=== PATIENT | female | born 1945 | race Caucasian/White ===

== ENCOUNTER 2018-01-26 16:38 | Observation (INO) ==
--- NOTE | 2018-01-26 17:23 | Emergency Department Note ---
Disposition Clinical Impression: Tachypnea, Elevated brain natriuretic peptide (BNP) level Dyspnea Qualifiers: Dyspnea type: dyspnea on exertion Qualified Code(s): R06.09 - Other forms of dyspnea Disposition: Admitted As Inpatient Condition: Fair Referrals: Gabe Montano Jr, MD [Primary Care Provider] - Forms: ED Satisfaction Letter Time of Disposition: 20:46 General Adult HPI - General Chief complaint: ED Shortness of Breath/Dyspnea Stated complaint: CHANDLER Time Seen by Provider: 01/26/18 16:48 Source: patient Mode of arrival: private vehicle Limitations: no limitations Nursing Notes Reviewed: Yes Vital Signs Reviewed: Yes - History of Present Illness HPI Narrative: Patient is a 72-year-old female with past medical history including congestive heart failure, hypertension, history of atrial fibrillation, presents with a chief complaint of difficulty breathing for four days. States 4 days ago she started feeling short of breath that has been progressively worsening the past 4 days. She states the shortness of breath worsens with exertion. She is now becoming short of breath when she gets up to go to the bathroom or walk upstairs. He does not have any oxygen at home. She complains of some intermittent nonradiating sharp right-sided chest pain. She also complains of cough and states "I feel like I am coughing up bubbles." She denies any fevers , nausea, abdominal pain, diaphoresis. She is presenting to the ED today for worsening of her symptoms. Pain Scale: 4 - Related Data Home Medications Medication Instructions Recorded Confirmed Aspirin 81 mg PO QPM 12/31/14 09/16/16 Furosemide [Lasix] 80 mg PO BID 12/31/14 09/16/16 Insulin Glargine,Hum.rec.anlog 40 unit SQ BID 12/31/14 09/16/16 [Lantus Solostar] Simvastatin [Zocor] 40 mg PO QPM 12/31/14 09/16/16 Amitriptyline [Elavil] 25 mg PO HS 01/26/18 01/26/18 Metoprolol Succinate 200 mg PO DAILY 01/26/18 01/26/18 OxyCODONE/APAP 5/325 [Percocet 1 - 2 tab PO Q6HR PRN 01/26/18 01/26/18 5/325 MG] Quinapril HCl [Accupril] 10 mg PO DAILY 01/26/18 01/26/18 Rivaroxaban [Xarelto] 15 mg PO DAILY 01/26/18 01/26/18 Simvastatin [Zocor] 40 mg PO HS 01/26/18 01/26/18 Allergies Allergy/AdvReac Type Severity Reaction Status Date / Time bacitracin Allergy Rash Verified 01/10/17 13:17 [From Neosporin ([id number])] Neomycin Allergy Rash Verified 01/10/17 13:17 [From Neosporin ([id number])] polymyxin B Allergy Rash Verified 01/10/17 13:17 [From Neosporin ([id number])] All systems ED: reviewed and negative except as stated. Review of Systems: As Per HPI Constitutional: Denies: fever, chills Eyes: Denies: vision change ENT ED: Denies: throat pain, congestion Cardiovascular: Reports: chest pain, dyspnea on exertion. Denies: palpitations Respiratory: Reports: cough. Denies: wheezes, hemoptysis Gastrointestinal: Denies: abdominal pain, nausea, diarrhea Genitourinary: Denies: dysuria, frequency Musculoskeletal: Denies: back pain Integumentary: Denies: rash Neurological: Denies: headache, weakness Hematological/Lymphatic: Denies: easy bruising Past Medical History - Past Medical History Attestation: Yes The following information was validated with the patient. 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 No conversational dyspnea. No crackles or wheezes). Absent: accessory muscle use - Cardiovascular Cardiovascular exam: Present: regular rate, normal rhythm, other (minimal pitting edema on right lower extremity. Left lower extremity is significantly more swollen than the right, about 2+ pitting edema. Bilateral radial pulses equal.). Absent: JVD - Abdominal Exam Abdominal exam: Present: soft, Non-Tender. Absent: distention - Neurological Exam Neurological exam: Present: alert, oriented X3 - Psychiatric Psychiatric exam: Present: normal affect, normal mood - Skin Skin exam: Present: warm, dry, intact. Absent: diaphoresis Course Vital Signs Temperature 97.6 F 01/26/18 16:43 Pulse Rate 83 01/26/18 16:43 Respiratory Rate 24 01/26/18 16:43 Blood Pressure 169/96 01/26/18 16:43 O2 Sat by Pulse Oximetry 98 01/26/18 16:43 Temperature 97.6 F 01/26/18 16:52 Pulse Rate 72 01/26/18 20:05 Respiratory Rate 20 01/26/18 20:05 Blood Pressure 109/83 01/26/18 20:05 O2 Sat by Pulse Oximetry 100 01/26/18 20:05 Oxygen Delivery Oxygen Delivery Room Air Procedures - Bursa Procedures Amount of anesthesia used (mL): 2 Fluid Obtained (mls): 1 Medical Decision Making - MDM Narrative Medical decision making narrative: Patient states the shortness of breath is improved with oxygen. She is on 2L O2 per NC at this time. She has no chest pain. Will get CXR, EKG, CBC, BMP, troponin, and BNP. Patient also has significant left lower extremity edema, more than the right. She denies immobilization, history of cancer, history of hormone use, history of blood clots. Will check venous doppler of left lower extremity to rule out DVT. Ordered CT angio of chest to rule out PE, but GFR came back to be 35. Will hold off on this for now and await ultrasound results and PT/INR as she takes warfarin. 15:55 Troponin is <0.03. No evidence of acute ischemia on EKG. 18:25 BNP is elevated at 397. She has had higher BNP is in the past in the 400s and 600s. Patient does take Lasix 80mg PO BID. Chest x-ray with cardiomegaly but no consolidation or acute cardiopulmonary process. 19:40 Patient has a superficial saphenous vein blood clot. No deep vein thrombosis is noted. Patient is already anticoagulated. Upon reevaluation, the patient's denies shortness of breath. She is on 2 L of oxygen. The patient is appropriately anticoagulated with warfarin and INR of 3.0, but there is still concern for a pulmonary embolism versus cardiac cause to her shortness of breath. Recommend VQ scan to further evaluate for pulmonary embolism in the inpatient setting. Hospitalist was consulted at 20:00 to be admitted for exertional dyspnea that is responsive to oxygen. She also has elevated BNP, possible fluid overload. 20:35 Hospitalist accepts admission. Patient is still requiring oxygen. She states she feels more short of breath when the oxygen is taken off. She tachypneic at times as well. Oxygen was placed back on the patient. - Medical Records Medical records reviewed: Yes I reviewed the patient's medical records. - Lab Data Lab results reviewed: Yes I reviewed the patient's lab results. Result diagrams: 01/26/18 17:17 01/26/18 17:17 Lab Results 01/26/18 01/26/18 01/26/18 Range/Units 17:17 17:17 17:17 WBC 8.4 (4.3-11.1) K/mcL RBC 3.65 L (3.82-4.97) M/mcL Hgb 10.0 L (11.5-15.4) g/dL Hct 32.7 L (35.3-44.9) % MCV 89.6 (83.0-100.0) fL MCH 27.4 L (28.0-33.3) pg MCHC 30.6 L (31.6-35.5) g/dL RDW 14.6 H (11.5-14.5) % Plt Count 115 L (140-400) K/mcL MPV 12.0 (9.4-12.4) fL Immature Gran % 0.9 (0-4) % Seg Neutrophils % 69.1 % Lymphocytes % 20.0 % Monocytes % 8.1 % Eosinophils % 1.5 % Basophils % 0.4 % Neutrophils # 5.8 (1.6-8.9) K/mcL Lymphocytes # 1.7 (0.6-4.6) K/mcL Monocytes # 0.7 (0.0-1.3) K/mcL Eosinophils # 0.1 (0.0-0.6) K/mcL Basophils # 0.0 (0.0-0.2) K/mcL PT (9.4-12.1) Seconds INR Sodium 139 (136-145) mEq/L Potassium 4.2 (3.5-5.1) mEq/L Chloride 102 (98-107) mEq/L Carbon Dioxide 27 (23-29) mEq/L BUN 40 H (8-23) mg/dL Creatinine 1.47 H (0.60-1.20) mg/dL Est GFR ( Amer) 42 L (> 60) Est GFR (Non-Af Amer) 35 L (> 60) BUN/Creatinine Ratio 27 H (6-26) Glucose 159 H (70-105) mg/dL Calculated Osmolality 301 H (280-300) Calcium 8.2 L (8.6-10.3) mg/dL Troponin I < 0.03 (< 0.04) ng/mL B-Natriuretic Peptide 397 H (Less than 100) pg/mL 01/26/18 Range/Units 17:17 WBC (4.3-11.1) K/mcL RBC (3.82-4.97) M/mcL Hgb (11.5-15.4) g/dL Hct (35.3-44.9) % MCV (83.0-100.0) fL MCH (28.0-33.3) pg MCHC (31.6-35.5) g/dL RDW (11.5-14.5) % Plt Count (140-400) K/mcL MPV (9.4-12.4) fL Immature Gran % (0-4) % Seg Neutrophils % % Lymphocytes % % Monocytes % % Eosinophils % % Basophils % % Neutrophils # (1.6-8.9) K/mcL Lymphocytes # (0.6-4.6) K/mcL Monocytes # (0.0-1.3) K/mcL Eosinophils # (0.0-0.6) K/mcL Basophils # (0.0-0.2) K/mcL PT 33.4 H (9.4-12.1) Seconds INR 3.0 Sodium (136-145) mEq/L Potassium (3.5-5.1) mEq/L Chloride (98-107) mEq/L Carbon Dioxide (23-29) mEq/L BUN (8-23) mg/dL Creatinine (0.60-1.20) mg/dL Est GFR ( Amer) (> 60) Est GFR (Non-Af Amer) (> 60) BUN/Creatinine Ratio (6-26) Glucose (70-105) mg/dL Calculated Osmolality (280-300) Calcium (8.6-10.3) mg/dL Troponin I (< 0.04) ng/mL B-Natriuretic Peptide (Less than 100) pg/mL - Radiology Data Radiology results reviewed: Yes I reviewed the patient's radiology results. Chest X-Ray 01/26/18 17:02 IMPRESSION: Cardiomegaly, otherwise, stable chest D/ / Omero Hawkins MD / Omero Hawkins MD Interpreting Provider: Omero Hawkins MD - EKG Data EKG #1 EKG attestation: Yes I reviewed and interpreted this EKG. EKG results narrative: EKG on 01/26/2018 at 1706 shows atrial fibrillation with heart rate 81. QT interval 394. QTC 446. No ST elevation or depression is noted. Attestation Statement - Attestation Attestation: I, You He DO, examined this patient [id number] and my medical decision-making was reviewed with Dr. Narda Logan , Resident Physician. I agree with the documented findings, disposition and treatment plan as described except to the extent set forth below. Please see my progress notes for details.
[2018-01-26 17:27] LABS: Hematocrit 32.7 % (35.3-44.9); Mean Corpuscular HGB Conc 30.6 g/dL (31.6-35.5); Mean Corpuscular Hemoglobin 27.4 pg (28.0-33.3); Mean Corpuscular Volume 89.6 fL (83.0-100.0); Platelet Count 115 K/mcL (140-400); Red Blood Count 3.65 M/mcL (3.82-4.97); Red Cell Distribution Width 14.6 % (11.5-14.5); Segmented Neutrophils % 69.1 %
[2018-01-26 17:28] LABS: Basophils % 0.4 %; Eosinophils # 0.1 K/mcL (0.0-0.6); Eosinophils % 1.5 %; Immature Granulocytes % 0.9 % (0-4); Lymphocytes # 1.7 K/mcL (0.6-4.6); Monocytes # 0.7 K/mcL (0.0-1.3); Monocytes % 8.1 %; Neutrophils # 5.8 K/mcL (1.6-8.9)
[2018-01-26] MEDS ORDERED: Isovue-370 500 ML INFUS..BTL IV ONE (17:48)
[2018-01-26 17:49] LABS: Troponin I < 0.03 ng/mL (< 0.04)
[2018-01-26 17:50] LABS: BUN/Creatinine Ratio 27 (6-26); Blood Urea Nitrogen 40 mg/dL (8-23); Calcium 8.2 mg/dL (8.6-10.3); Carbon Dioxide 27 mEq/L (23-29); Chloride 102 mEq/L (98-107); Glucose 159 mg/dL (70-105); Osmolality,Calculated 301 (280-300); Potassium 4.2 mEq/L (3.5-5.1); Sodium 139 mEq/L (136-145); eGFR For Non-African Americans 35 (> 60)
[2018-01-26 18:17] LABS: Prothrombin Time 33.4 Seconds (9.4-12.1)
--- NOTE | 2018-01-26 19:21 | Emergency Department Note ---
Disposition Clinical Impression: Dyspnea, Tachypnea, Elevated brain natriuretic peptide (BNP) level Disposition: Admitted As Inpatient Condition: Fair Referrals: Gabe Montano Jr, MD [Primary Care Provider] - Forms: ED Satisfaction Letter Time of Disposition: 20:39 General Adult HPI - General Chief complaint: ED Shortness of Breath/Dyspnea Stated complaint: CHANDLER Time Seen by Provider: 01/26/18 16:48 Source: patient Mode of arrival: private vehicle Limitations: no limitations - History of Present Illness Pain Scale: 4 - Related Data Home Medications Medication Instructions Recorded Confirmed Amitriptyline [Elavil] 25 mg PO QPM 12/31/14 09/16/16 Aspirin 81 mg PO QPM 12/31/14 09/16/16 Estrogens, Conjugated [Premarin] 0.625 mg PO QAM 12/31/14 09/16/16 Furosemide [Lasix] 80 mg PO BID 12/31/14 09/16/16 Insulin Glargine,Hum.rec.anlog 40 unit SQ BID 12/31/14 09/16/16 [Lantus Solostar] Quinapril HCl 10 mg PO QAM 12/31/14 09/16/16 Rivaroxaban [Xarelto] 15 mg PO QPM 12/31/14 09/16/16 Simvastatin [Zocor] 40 mg PO QPM 12/31/14 09/16/16 Ferrous Sulfate 325 mg PO QAM 04/22/15 09/16/16 Metoprolol Succinate [Toprol Xl] 200 mg PO QAM 04/22/15 09/16/16 Previous Rx's Medication Instructions Recorded Oxycodone HCl/Acetaminophen 1 - 2 each PO Q6HR #20 tablet 10/07/15 [Percocet 5-325 mg Tablet] Cyclobenzaprine [Flexeril] 10 mg PO BID #10 tablet 01/10/17 Allergies Allergy/AdvReac Type Severity Reaction Status Date / Time bacitracin Allergy Rash Verified 01/10/17 13:17 [From Neosporin ([id number])] Neomycin Allergy Rash Verified 01/10/17 13:17 [From Neosporin ([id number])] polymyxin B Allergy Rash Verified 01/10/17 13:17 [From Neosporin ([id number])] Constitutional: Denies: fever, chills Eyes: Denies: vision change ENT ED: Denies: throat pain, congestion Cardiovascular: Reports: chest pain, dyspnea on exertion. Denies: palpitations Respiratory: Reports: cough. 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 - Social History Smoking Status: Former smoker Smokeless Tobacco Status: No Alcohol use: Reports: none Drug use: Reports: none Physical Exam - General Limitations: no limitations General appearance: alert, in no apparent distress Course Vital Signs Temperature 97.6 F 01/26/18 16:43 Pulse Rate 83 01/26/18 16:43 Respiratory Rate 24 01/26/18 16:43 Blood Pressure 169/96 01/26/18 16:43 O2 Sat by Pulse Oximetry 98 01/26/18 16:43 Temperature 97.6 F 01/26/18 16:52 Pulse Rate 72 01/26/18 20:05 Respiratory Rate 20 01/26/18 20:05 Blood Pressure 109/83 01/26/18 20:05 O2 Sat by Pulse Oximetry 100 01/26/18 20:05 Oxygen Delivery Oxygen Delivery Room Air Medical Decision Making - Lab Data Result diagrams: 01/26/18 17:17 01/26/18 17:17 Lab Results 01/26/18 01/26/18 01/26/18 Range/Units 17:17 17:17 17:17 WBC 8.4 (4.3-11.1) K/mcL RBC 3.65 L (3.82-4.97) M/mcL Hgb 10.0 L (11.5-15.4) g/dL Hct 32.7 L (35.3-44.9) % MCV 89.6 (83.0-100.0) fL MCH 27.4 L (28.0-33.3) pg MCHC 30.6 L (31.6-35.5) g/dL RDW 14.6 H (11.5-14.5) % Plt Count 115 L (140-400) K/mcL MPV 12.0 (9.4-12.4) fL Immature Gran % 0.9 (0-4) % Seg Neutrophils % 69.1 % Lymphocytes % 20.0 % Monocytes % 8.1 % Eosinophils % 1.5 % Basophils % 0.4 % Neutrophils # 5.8 (1.6-8.9) K/mcL Lymphocytes # 1.7 (0.6-4.6) K/mcL Monocytes # 0.7 (0.0-1.3) K/mcL Eosinophils # 0.1 (0.0-0.6) K/mcL Basophils # 0.0 (0.0-0.2) K/mcL PT (9.4-12.1) Seconds INR Sodium 139 (136-145) mEq/L Potassium 4.2 (3.5-5.1) mEq/L Chloride 102 (98-107) mEq/L Carbon Dioxide 27 (23-29) mEq/L BUN 40 H (8-23) mg/dL Creatinine 1.47 H (0.60-1.20) mg/dL Est GFR ( Amer) 42 L (> 60) Est GFR (Non-Af Amer) 35 L (> 60) BUN/Creatinine Ratio 27 H (6-26) Glucose 159 H (70-105) mg/dL Calculated Osmolality 301 H (280-300) Calcium 8.2 L (8.6-10.3) mg/dL Troponin I < 0.03 (< 0.04) ng/mL B-Natriuretic Peptide 397 H (Less than 100) pg/mL 01/26/18 Range/Units 17:17 WBC (4.3-11.1) K/mcL RBC (3.82-4.97) M/mcL Hgb (11.5-15.4) g/dL Hct (35.3-44.9) % MCV (83.0-100.0) fL MCH (28.0-33.3) pg MCHC (31.6-35.5) g/dL RDW (11.5-14.5) % Plt Count (140-400) K/mcL MPV (9.4-12.4) fL Immature Gran % (0-4) % Seg Neutrophils % % Lymphocytes % % Monocytes % % Eosinophils % % Basophils % % Neutrophils # (1.6-8.9) K/mcL Lymphocytes # (0.6-4.6) K/mcL Monocytes # (0.0-1.3) K/mcL Eosinophils # (0.0-0.6) K/mcL Basophils # (0.0-0.2) K/mcL PT 33.4 H (9.4-12.1) Seconds INR 3.0 Sodium (136-145) mEq/L Potassium (3.5-5.1) mEq/L Chloride (98-107) mEq/L Carbon Dioxide (23-29) mEq/L BUN (8-23) mg/dL Creatinine (0.60-1.20) mg/dL Est GFR ( Amer) (> 60) Est GFR (Non-Af Amer) (> 60) BUN/Creatinine Ratio (6-26) Glucose (70-105) mg/dL Calculated Osmolality (280-300) Calcium (8.6-10.3) mg/dL Troponin I (< 0.04) ng/mL B-Natriuretic Peptide (Less than 100) pg/mL Attestation Statement - Attestation Attestation: I, You He DO, examined this patient [id number] and my medical decision-making was reviewed with Dr. Narda Logan , Resident Physician. I agree with the documented findings, disposition and treatment plan as described except to the extent set forth below. Please see my progress notes for details. 72-year-old female presents emergency room with complaint of shortness of breath. She has had these symptoms for approximately 4 days. She denies any fall or injury. Patient denies any trauma. Patient is alert she is oriented she speaks in full sentences. Currently denying chest pain fevers chills nausea vomiting or diarrhea. Denies any headache or vision change. Patient is denying no medications or other issues at this point. She is resting in the bed she is on oxygen this time she says it makes her feel better. She typically does not use oxygen. Vital signs otherwise unremarkable initially. Patient did have some intermittent tachycardic runs. She is concerning for DVT considering she has "tummy swelling. She is currently on Coumadin so we will check her INR. This is low. Patient otherwise of evaluation. Cardiopulmonary related etiology to the shortness of breath that made her presents emergency room here today. She denies any other specific symptoms at this point. Her lungs are clear her heart is regular. Abdomen is soft nontender nondistended no guarding no rigidity no peritoneal symptoms there is no pulsatile masses or lesions noted. Patient moves her extremities Difficulty but she does have pitting edema to the knees bilaterally. Concern is noted for congestive heart failure versus pulmonary related etiology including respiratory distress. She will be treated symptomatically with chest x-ray EKG CBC chemistry troponin Doppler the left lower extremity INR. Patient will also have CT angiography ordered as long as her creatinine is stable. Disposition pending workup and treatment course. Patient will most every required admission. See detailed recommendation physical exam, medical intervention, medical decision-making and disposition the resident physician's note. No nuchal care applied the patient's treatment course at this time. 1999 Patient has slightly elevated BNP would in comparison to previous it appears to be better than her normal. Patient is describing symptomatic control with the oxygen in place and feels better with oxygen applied. She does not typically have oxygen at home. She has had stable vital signs here but does show some signs of pulmonary congestion pitting edema and swelling in the legs. The hospitalist will be contacted for admission note with appears to be 4-5 days of exertional dyspnea that is responsive the oxygen here in the emergency room with history of congestive heart failure. DVT study and left lower extremity is negative. There is still concern for possible pulmonary emboli which could be addressed with VQ scan the inpatient setting. 2034 Patient had her oxygen turned off in the room and she said it made her feel uncomfortable. Patient is anticoagulated with an INR 3.0 but there is still some concern for possible cardiac versus pulmonary related etiology for symptoms. Patient will be admitted for determination of possible VQ scan versus cardiac evaluation. Patient was discussed with the hospitalist in addition process will be completed this point. No other acute concerns or issues noted. Patient otherwise currently stable.
[2018-01-26] MEDS ORDERED: Naloxone 0.4 MG/ML INJ IVP PRN (20:39)
--- NOTE | 2018-01-26 23:12 | Internal Med History&Physical ---
<Dario Husain - Last Filed: 01/26/18 23:09> Date of Encounter: 01/26/18 Time of Encounter: 23:10 Internal Medicine - H&P: HPI Chief complaint: sob Admitted From: Home Plans for Post Hospital Care: Home History of present illness: Ms. Garibay is a 72 year old female with history of diastolic CHF presented with chief complaint of shortness of breath that started 5 days ago. Patient reports shortness of breath was initially very mild progressively worsened and currently she is unable to walk more than 10 feet. She reports exertional dyspnea. She denies fevers chills, cough, sputum production. She reports right -sided chest pain that is described as aching in nature that has been present for 2 months and changes with position. She denies abdominal pain, changes in urine or improve bowel habits. Patient reports having a weight increase from 186 pounds to 200 pounds in the past week. She drinks up to 34 L of water a day plus coffee. She adds salt to her diet and also is an uncontrolled diabetic (reports polydipsia, polyuria). Past Med Surg Social Fam HX - Past Medical History Medical history: atrial fibrillation, diabetes, hyperlipidemia, hypertension Additional medical history: neuropathy Psychiatric history: no psych history - Past Surgical History Surgical History: appendectomy, cholecystectomy, hysterectomy, knee replacement , other Additional surgical history: bilateral knee replacements, bilateral carpal tunnel release - Social History Smoking Status: Former smoker (30 pack year history) Smokeless Tobacco Status: No Alcohol use: none Drug use: none - Family History Mother Living Status: Hx Family Cardiac Disorders: Yes (heart failure) Hx Family Endocrine Disorder: Yes (dm) Internal Medicine - H&P: Meds Aspirin 81 mg PO QPM 12/31/14 [History] Furosemide [Lasix] 80 mg PO BID 12/31/14 [History] Insulin Glargine,Hum.rec.anlog [Lantus Solostar] 60 unit SQ BID 12/31/14 [ History] Amitriptyline [Elavil] 25 mg PO HS 01/26/18 [History] Metoprolol Succinate 200 mg PO DAILY 01/26/18 [History] OxyCODONE/APAP 5/325 [Percocet 5/325 MG] 1 - 2 tab PO Q6HR PRN 01/26/18 [History ] Quinapril HCl [Accupril] 10 mg PO DAILY 01/26/18 [History] Simvastatin [Zocor] 40 mg PO HS 01/26/18 [History] Vitamin B Complex [B Complex] 1 tab PO DAILY 01/26/18 [History] Warfarin [Coumadin] 1 mg PO SUTUTHSA 01/27/18 [History] Warfarin [Coumadin] 2 mg PO MOWEFR 01/27/18 [History] 3 Allergy/AdvReac Type Severity Reaction Status Date / Time bacitracin Allergy Rash Verified 01/10/17 13:17 [From Neosporin ([id number])] Neomycin Allergy Rash Verified 01/10/17 13:17 [From Neosporin ([id number])] polymyxin B Allergy Rash Verified 01/10/17 13:17 [From Neosporin ([id number])] All Systems PM: A 10-system review of systems was performed and is negative for pertinent findings except as documented above in the HPI. Review of systems: Constitutional: Denies fever, chills HEENT: Denies headache, vision changes, neck pain, sore throat, rhinorrhea Heart: Reports chest pain, denies Lungs: Reports shortness of breath, denies Abdomen: Denies abdominal pain nausea vomiting. Reports intermittent diarrhea and constipation Back: Denies back pain Kidney: Denies dysuria, hematuria Skin: Denies rash, lesions Extremities: Reports lower extremity swelling, denies pain Neuro: Denies numbness and tingling - Constitutional Vitals: Temp Pulse Resp BP Pulse Ox 97.6 F 72 20 109/83 100 01/26/18 16:52 01/26/18 20:05 01/26/18 20:05 01/26/18 20:05 01/26/18 20:05 Exam: General: Pleasant without distress HEENT: Head atraumatic, normocephalic, EOMI, PERRL, neck nontender to palpation , absent lymphadenopathy, Moist Mucous Membranes, Heart: Regular rate and rhythm with no murmur Lungs: Mild crackles in the left lower lobe otherwise clear Abdomen: Soft nontender, nondistended positive bowel sounds Skin: warm and dry, absent rash Extremities: 2+ pitting edema bilaterally Neuro: Cranial nerves II through XII intact, UE and LE sensation equal bilaterally, UE and LEstrength 5/5, alert oriented 3, Vascular: Pedal and radial pulses 2 out of 4 Internal Med - H&P Results - Labs CBC & Chem 7: 01/26/18 17:17 01/26/18 17:17 Labs: Short CBC 01/26/18 Range/Units 17:17 WBC 8.4 (4.3-11.1) K/mcL Hgb 10.0 L (11.5-15.4) g/dL Hct 32.7 L (35.3-44.9) % Plt Count 115 L (140-400) K/mcL Neutrophils # 5.8 (1.6-8.9) K/mcL BMP 01/26/18 17:17 Sodium 139 Potassium 4.2 Chloride 102 Carbon Dioxide 27 BUN 40 H Creatinine 1.47 H Glucose 159 H Calcium 8.2 L Cardiac Enzymes 01/26/18 Range/Units 17:17 Troponin I < 0.03 (< 0.04) ng/mL - Impressions ITS Impressions Chest X-Ray 01/26/18 17:02 IMPRESSION: Cardiomegaly, otherwise, stable chest D/ / Omero Hawkins MD / Omero Hawkins MD Interpreting Provider: Omero Hawkins MD - Assessment and plan (1) Acute on chronic congestive heart failure Current Visit: Yes Status: Acute Assessment and plan: 72-year-old febrile presented with chief complaint of shortness of breath is progressively worsening last 5 days Patient has history of diastolic heart failure NYHA class III Patient reports a weight gain of almost 20 pounds in the last week. She has 2+ lower extremity edema bilaterally Chest x-ray shows cardiomegaly otherwise normal BNP 397 We will score 0: Underwent bilateral lower extremity Doppler which was negative for DVT. Last complete echocardiogram was on 03/05/2016 with the left ventricular systolic function of 65-70%, moderate left ventricular diastolic dysfunction, mildly dilated left atrium and mild pulmonary hypertension Plan: IV Lasix, repeat echocardiogram. 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 insulin use: with middle or intermediate school principal use Diabetes mellitus complication status: with hyperglycemia Qualified Code(s): E11.65 - Type 2 diabetes mellitus with hyperglycemia; Z79.4 - jail (current) use of insulin (3) A-fib Current Visit: Yes Status: Chronic Assessment and plan: patient has hx of afib currently sinus rhythm controlled INR 3 will conitnue warfarin and metoprolol Qualifiers: Atrial fibrillation type: paroxysmal Qualified Code(s): I48.0 - Paroxysmal atrial fibrillation (4) CKD (chronic kidney disease) stage 3, GFR 30-59 ml/min Current Visit: Yes Status: Chronic Assessment and plan: patient has hx of CKD3 she is at baseline BMP in morning. (5) DVT prophylaxis Current Visit: Yes Status: Acute Assessment and plan: warfarin (6) DARREN (obstructive sleep apnea) Current Visit: Yes Status: Acute Assessment and plan: patient reports hx of DARREN but is not compliant with her CPAP consult respiratory for CPAP - Time Spent With Patient Total time spent is greater than 50% in coordination of care (as documented) at patient's floor/unit and/or counseling patient: - VTE Reasons for not Prescribing Prophylaxis: Not indicated-Anticoagulated or INR therapeutic <Tone Gomez - Last Filed: 01/27/18 08:13> Date of Encounter: 01/27/18 Internal Medicine - H&P: HPI History of present illness: Ms. Garibay is a 72 year old female All Systems PM: A 10-system review of systems was performed and is negative for pertinent findings except as documented above in the HPI. - Constitutional Vitals: Temp Pulse Resp BP Pulse Ox 97.6 F 70 16 156/88 99 01/27/18 06:36 01/27/18 06:36 01/27/18 06:36 01/27/18 06:36 01/27/18 06:36 Internal Med - H&P Results - Labs CBC & Chem 7: 01/27/18 05:43 01/27/18 05:43 Labs: Short CBC 01/27/18 Range/Units 05:43 WBC 9.2 (4.3-11.1) K/mcL Hgb 9.5 L (11.5-15.4) g/dL Hct 31.7 L (35.3-44.9) % Plt Count 110 L (140-400) K/mcL BMP 01/27/18 05:43 Sodium 140 Potassium 4.1 Chloride 102 Carbon Dioxide 30 H BUN 38 H Creatinine 1.55 H Glucose 149 H Calcium 8.3 L Liver Function 01/27/18 Range/Units 05:43 Total Bilirubin 0.4 (0.3-1.0) mg/dL AST 33 (13-39) Units/L ALT 26 (7-52) Units/L Alkaline Phosphatase 161 H (34-104) Units/L Albumin 3.5 (3.5-5.7) g/dL - Assessment and plan (1) Diabetes mellitus Current Visit: Yes Status: Acute Qualifiers: Diabetes mellitus type: type 2 Diabetes mellitus shelter insulin use: with shelter use Diabetes mellitus complication status: with hyperglycemia Qualified Code(s): E11.65 - Type 2 diabetes mellitus with hyperglycemia; 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 (2) A-fib Current Visit: Yes Status: Chronic Qualifiers: Atrial fibrillation type: paroxysmal Qualified Code(s): I48.0 - Paroxysmal atrial fibrillation (3) CKD (chronic kidney disease) stage 3, GFR 30-59 ml/min Current Visit: Yes Status: Chronic (4) Acute on chronic congestive heart failure Current Visit: Yes Status: Acute Qualifiers: Heart failure type: diastolic Qualified Code(s): I50.33 - Acute on chronic diastolic (congestive) heart failure (5) DVT prophylaxis Current Visit: Yes Status: Acute (6) DARREN (obstructive sleep apnea) Current Visit: Yes Status: Acute - Time Spent With Patient Total time spent is greater than 50% in coordination of care (as documented) at patient's floor/unit and/or counseling patient: - Attending Attestation Patient seen and examined. Case discussed with resident. Agree with assessment and plan. We will admit and treat for possible CHF exacerbation.
[2018-01-26] MEDS ORDERED: Furosemide 80 MG in 0.9 % Sodium Chloride 50 ML IVPB SCH (23:15)
[2018-01-26] MEDS ORDERED: D5% in Water 1,000 ML IVC PRN (23:20)
[2018-01-26] MEDS ORDERED: *HR* Dextrose 50 % in Water (Syg) 50 ML SYRINGE IVP PRN (23:20)
[2018-01-26] MEDS ORDERED: Dextrose Gel 15 GM/37.5 ML TUBE PO PRN ×2 (23:20)
[2018-01-27] MEDS ORDERED: Furosemide 240 MG in D5% in Water 96 ML IVC SCH (01:30)
[2018-01-27 06:26] LABS: Hematocrit 31.7 % (35.3-44.9); Hemoglobin 9.5 g/dL (11.5-15.4); Mean Corpuscular Hemoglobin 27.1 pg (28.0-33.3); Mean Corpuscular Volume 90.3 fL (83.0-100.0); Mean Platelet Volume 12.4 fL (9.4-12.4); Platelet Count 110 K/mcL (140-400); Red Blood Count 3.51 M/mcL (3.82-4.97); Red Cell Distribution Width 14.7 % (11.5-14.5)
[2018-01-27 06:30] LABS: INR 2.5; Prothrombin Time 28.7 Seconds (9.4-12.1)
[2018-01-27 07:53] LABS: Albumin 3.5 g/dL (3.5-5.7); Albumin/Globulin Ratio 1.3 (1.1-2.2); Bilirubin,Total 0.4 mg/dL (0.3-1.0); Calcium 8.3 mg/dL (8.6-10.3); Globulin 2.6 g/dL (2.4-3.5); Potassium 4.1 mEq/L (3.5-5.1); Total Protein 6.1 g/dL (6.4-8.9)
--- NOTE | 2018-01-27 08:29 | Internal Med History&Physical ---
Date of Encounter: 01/27/18 Time of Encounter: 08:00 Internal Medicine - H&P: HPI Chief complaint: SOB History of present illness: Ms. Garibay is a 72 year old female with a past medical history of afib, T2DM, hyperlipidemia, and HTN who presented to the ED with progressively worsening SOB. 4 days ago the patient began feeling SOB that worsened upon exertion and improved with sitting and rest. SOB intermittent throughout the day and not associated with orthopnea or PND. Pt complains of a chronic non-productive cough , recent 20lb+ weight gain, fatigue and nocturia 6-8 times a night. Pt also complains of a chronic intermittent right sided chest pain that extends under right armpit. ROS General: recent 20lb+ weight gait, chronic fatigue, no fever/chills, n/v, night sweats Head: no headache CV: right-sided chest pain, no orthopnea, PND, palpitations Resp: per HPI; no asthma, hemoptysis, pain on inspiration GI: alternating diarrhea/constipation : nocturia 6-8 x night, no dysuria, hematuria Neuro: no numbness/tingling Psych: no anxiety, depression, mood changes Past Med Surg Social Fam HX - Past Medical History Medical history: atrial fibrillation, diabetes, hyperlipidemia, hypertension Additional medical history: neuropathy Psychiatric history: no psych history - Past Surgical History Surgical History: appendectomy, cholecystectomy, hysterectomy, knee replacement , other Additional surgical history: bilateral knee replacements, bilateral carpal tunnel release - Social History Smoking Status: Former smoker Smokeless Tobacco Status: No Alcohol use: none Drug use: none - Family History Mother Living Status: Hx Family Cardiac Disorders: Yes (heart failure) Hx Family Endocrine Disorder: Yes (dm) Internal Medicine - H&P: Meds Aspirin 81 mg PO QPM 12/31/14 [History] Furosemide [Lasix] 80 mg PO BID 12/31/14 [History] Insulin Glargine,Hum.rec.anlog [Lantus Solostar] 60 unit SQ BID 12/31/14 [ History] Amitriptyline [Elavil] 25 mg PO HS 01/26/18 [History] Metoprolol Succinate 200 mg PO DAILY 01/26/18 [History] OxyCODONE/APAP 5/325 [Percocet 5/325 MG] 1 - 2 tab PO Q6HR PRN 01/26/18 [History ] Quinapril HCl [Accupril] 10 mg PO DAILY 01/26/18 [History] Simvastatin [Zocor] 40 mg PO HS 01/26/18 [History] Vitamin B Complex [B Complex] 1 tab PO DAILY 01/26/18 [History] Warfarin [Coumadin] 1 mg PO SUTUTHSA 01/27/18 [History] Warfarin [Coumadin] 2 mg PO MOWEFR 01/27/18 [History] 3 Allergy/AdvReac Type Severity Reaction Status Date / Time bacitracin Allergy Rash Verified 01/10/17 13:17 [From Neosporin ([id number])] Neomycin Allergy Rash Verified 01/10/17 13:17 [From Neosporin ([id number])] polymyxin B Allergy Rash Verified 01/10/17 13:17 [From Neosporin ([id number])] All Systems PM: A 10-system review of systems was performed and is negative for pertinent findings except as documented above in the HPI. - Constitutional Vitals: Temp Pulse Resp BP Pulse Ox 97.6 F 70 16 156/88 99 01/27/18 06:36 01/27/18 06:36 01/27/18 06:36 01/27/18 06:36 01/27/18 06:36 Exam: General: alert and oriented, in no acute distress Skin: bruises throughout upper and lower extremities ENT: moist mucous membranes, no lymphadenopathy, no thyromeagaly CV: mild left pedal edema, RRR, no murmurs Resp: CTAB, no wheezes, rales, rhonci GI: RLQ tender upon palpation, normal bowel sounds Internal Med - H&P Results - Labs CBC & Chem 7: 01/27/18 05:43 01/27/18 05:43 Labs: Short CBC 01/27/18 Range/Units 05:43 WBC 9.2 (4.3-11.1) K/mcL Hgb 9.5 L (11.5-15.4) g/dL Hct 31.7 L (35.3-44.9) % Plt Count 110 L (140-400) K/mcL BMP 01/27/18 05:43 Sodium 140 Potassium 4.1 Chloride 102 Carbon Dioxide 30 H BUN 38 H Creatinine 1.55 H Glucose 149 H Calcium 8.3 L Liver Function 01/27/18 Range/Units 05:43 Total Bilirubin 0.4 (0.3-1.0) mg/dL AST 33 (13-39) Units/L ALT 26 (7-52) Units/L Alkaline Phosphatase 161 H (34-104) Units/L Albumin 3.5 (3.5-5.7) g/dL - Time Spent With Patient Total time spent is greater than 50% in coordination of care (as documented) at patient's floor/unit and/or counseling patient: - VTE Reasons for not Prescribing Prophylaxis: Not indicated-Anticoagulated or INR therapeutic
--- NOTE | 2018-01-27 09:14 | Internal Med Progress Note ---
<Verónica Cisse R - Last Filed: 01/27/18 11:38> Hospitalist Progress Note - Encounter Date of Encounter: 01/27/18 Time of Encounter: 08:00 - Subjective Interval History: Ms. Garibay is a 72 year old female with a past medical history of afib, T2DM, hyperlipidemia, HTN, and DARREN non-compliant with CPAP use who presented to the ED with progressively worsening SOB. 5 days ago the patient began feeling SOB that worsened upon exertion and improved with sitting and rest. SOB intermittent throughout the day and associated with orthopnea and PND. Pt complains of a chronic non-productive cough, 20lb+ weight gain in the past wk, and fatigue. Pt also complains of a chronic intermittent right sided chest pain that extends under right armpit and worsens when she lays on her side. ROS General: recent 20lb+ weight gait, chronic fatigue, no fever/chills, n/v, night sweats Head: no headache CV: right-sided chest pain, no orthopnea, PND, palpitations Resp: per HPI; no asthma, hemoptysis, pain on inspiration GI: alternating diarrhea/constipation : nocturia 6-8 x night, no dysuria, hematuria Neuro: numbness/tingling Psych: no anxiety, depression, mood changes - Exam Vitals: Temp Pulse Resp BP Pulse Ox 97.6 F 70 16 156/88 99 01/27/18 06:36 01/27/18 06:36 01/27/18 06:36 01/27/18 06:36 01/27/18 06:36 Exam: General: alert and oriented, in no acute distress Skin: bruises throughout upper and lower extremities ENT: moist mucous membranes, no lymphadenopathy, no thyromeagaly CV: no pedal edema, RRR, no murmurs Resp: CTAB, no wheezes, rales, rhonci GI: RLQ tender upon palpation, normal bowel sounds - Assessment and Plan (1) Acute on chronic congestive heart failure Current Visit: Yes Status: Acute Assessment and Plan: IV lasix 80mg Stop lisiniopril repeat echo fluid restriction <1.5 L/day strict I's and O's NPO today stress test tomorrow (2) Diabetes mellitus Current Visit: Yes Status: Acute Assessment and Plan: watch blood glucose, start insulin if needed (3) A-fib Current Visit: Yes Status: Chronic Assessment and Plan: currently sinus rhythm continue warfarin and metoprolol (4) CKD (chronic kidney disease) stage 3, GFR 30-59 ml/min Current Visit: Yes Status: Chronic Assessment and Plan: stage 3 CKD, at baseline (5) DARREN (obstructive sleep apnea) Current Visit: Yes Status: Acute Assessment and Plan: consult respiratory for CPAP (6) DVT prophylaxis Current Visit: Yes Status: Acute Assessment and Plan: on warfarin - Time Spent with Patient Total time spent is greater than 50% in coordination of care (as documented) at patient's floor/unit and/or counseling patient: Internal Medicine: Result - Labs CBC & Chem 7: 01/27/18 05:43 01/27/18 05:43 Labs: Short CBC 01/27/18 Range/Units 05:43 WBC 9.2 (4.3-11.1) K/mcL Hgb 9.5 L (11.5-15.4) g/dL Hct 31.7 L (35.3-44.9) % Plt Count 110 L (140-400) K/mcL BMP 01/27/18 05:43 Sodium 140 Potassium 4.1 Chloride 102 Carbon Dioxide 30 H BUN 38 H Creatinine 1.55 H Glucose 149 H Calcium 8.3 L Liver Function 01/27/18 Range/Units 05:43 Total Bilirubin 0.4 (0.3-1.0) mg/dL AST 33 (13-39) Units/L ALT 26 (7-52) Units/L Alkaline Phosphatase 161 H (34-104) Units/L Albumin 3.5 (3.5-5.7) g/dL - ABG Interpretation ABG results: PT/INR, D-dimer PT 28.7 Seconds (9.4-12.1) H 01/27/18 05:43 - VTE Reasons for not Prescribing Prophylaxis: Not indicated-Anticoagulated or INR therapeutic Consult Discharge Plan - Plan Referrals: Gabe Montano Jr, MD [Primary Care Provider] - <Ramin Bustos - Last Filed: 01/27/18 14:23> Hospitalist Progress Note - Encounter Date of Encounter: 01/27/18 Time of Encounter: 10:35 - Subjective Interval History: Patient feels much better today. Her breathing is improved. Her lower extremity swelling has also improved. She has responded well to diuretics and has had good urine output. She reports that she does not restrict her fluid intake although she remains compliant with her medications. Also reports right- sided chest pain and right lower quadrant abdominal pain. Admits to chest pain radiates to axilla right lower back. She reports that she has been going on for several months now. She denies any constipation nausea or vomiting. - Exam Vitals: Temp Pulse Resp BP Pulse Ox 98 F 75 15 145/81 100 01/27/18 11:19 01/27/18 11:19 01/27/18 11:19 01/27/18 11:19 01/27/18 11:19 - Assessment and Plan (1) Acute on chronic congestive heart failure Current Visit: Yes Status: Acute Assessment and Plan: Patient with history of diastolic dysfunction presented with acute congestive heart failure. Responded well to intravenous diuretics. We will continue IV diuretics. Fluid restriction. Reviewed old records. No prior records of stress test done here. Given that patient is complaining of chest discomfort that has been ongoing for several months now. Will obtain cardiac stress test. Recheck troponins. Moderate risk for complications. (2) Diabetes mellitus Current Visit: Yes Status: Chronic Assessment and Plan: Fairly controlled. Continue current insulin regimen. Continue to monitor blood sugars closely. (3) A-fib Current Visit: Yes Status: Chronic Assessment and Plan: Currently in sinus rhythm. On Coumadin. INR is therapeutic. (4) CKD (chronic kidney disease) stage 3, GFR 30-59 ml/min Current Visit: Yes Status: Chronic Assessment and Plan: Creatinine 1.55 today. Baseline appears to be between 1.3 and 1.6. Continue to follow renal function closely. (5) DVT prophylaxis Current Visit: Yes Status: Acute Assessment and Plan: Continue Coumadin (6) DARREN (obstructive sleep apnea) Current Visit: Yes Status: Acute Assessment and Plan: Use CPAP as needed. (7) Essential hypertension Current Visit: Yes Status: Chronic Assessment and Plan: On Toprol. Blood pressure elevated this morning. Will monitor and adjust antihypertensive regimen accordingly. - Time Spent with Patient Total time spent is greater than 50% in coordination of care (as documented) at patient's floor/unit and/or counseling patient: Internal Medicine: Result - Labs CBC & Chem 7: 01/27/18 05:43 01/27/18 05:43 Labs: Short CBC 01/27/18 Range/Units 05:43 WBC 9.2 (4.3-11.1) K/mcL Hgb 9.5 L (11.5-15.4) g/dL Hct 31.7 L (35.3-44.9) % Plt Count 110 L (140-400) K/mcL BMP 01/27/18 05:43 Sodium 140 Potassium 4.1 Chloride 102 Carbon Dioxide 30 H BUN 38 H Creatinine 1.55 H Glucose 149 H Calcium 8.3 L Liver Function 01/27/18 Range/Units 05:43 Total Bilirubin 0.4 (0.3-1.0) mg/dL AST 33 (13-39) Units/L ALT 26 (7-52) Units/L Alkaline Phosphatase 161 H (34-104) Units/L Albumin 3.5 (3.5-5.7) g/dL - ABG Interpretation ABG results: PT/INR, D-dimer PT 28.7 Seconds (9.4-12.1) H 01/27/18 05:43 <Verónica Cisse - Last Filed: 01/27/18 11:38> (1) Acute on chronic congestive heart failure Qualifiers: Heart failure type: diastolic Qualified Code(s): I50.33 - Acute on chronic diastolic (congestive) heart failure (2) Diabetes mellitus Qualifiers: Diabetes mellitus type: type 2 Diabetes 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 nursing 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 Diabetes mellitus complication status: with hyperglycemia Qualified Code(s): E11.65 - Type 2 diabetes mellitus with hyperglycemia; 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 <Ramin Bustos - Last Filed: 01/27/18 14:23> (1) Acute on chronic congestive heart failure Qualifiers: Heart failure type: diastolic Qualified Code(s): I50.33 - Acute on chronic diastolic (congestive) heart failure (2) Diabetes mellitus Qualifiers: Diabetes mellitus type: type 2 Diabetes mellitus skilled nursing insulin use: with skilled nursing use Diabetes mellitus complication status: with hyperglycemia Qualified Code(s): E11.65 - Type 2 diabetes mellitus with hyperglycemia; 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
[2018-01-27] MEDS: Insulin LISPRO 300 UNITS/3 ML VIAL SQ SCH ×5 (09:59→22:08)
[2018-01-27] MEDS: Metoprolol XL (24 HR) Succ 50 MG TAB.ER.24H PO SCH (10:01)
[2018-01-27] MEDS ORDERED: Furosemide 40 MG/4 ML VIAL IVP ONE ×2 (11:35→18:30)
[2018-01-27] MEDS: Aspirin 81 MG TAB.CHEW PO SCH (17:48)
[2018-01-27] MEDS ORDERED: Warfarin perPT PO PRN (18:00)
[2018-01-27] MEDS ORDERED: *HR* Warfarin 2 MG TABLET PO ONE (18:00)
[2018-01-27] MEDS: Insulin DETEMIR 100 UNIT/ML X5UNITS SQ SCH (22:08)
[2018-01-27] MEDS ORDERED: hydrALAZINE 10 MG TABLET PO PRN (22:14)
[2018-01-28] MEDS ORDERED: Regadenoson 0.4 MG/5 ML SYRINGE IVP ONE (06:09)
[2018-01-28 06:25] LABS: Hematocrit 30.6 % (35.3-44.9); Immature Granulocytes % 0.4 % (0-4); Mean Corpuscular Volume 89.7 fL (83.0-100.0); Red Blood Count 3.41 M/mcL (3.82-4.97)
[2018-01-28 06:27] LABS: Basophils % 0.6 %; Eosinophils # 0.2 K/mcL (0.0-0.6); Eosinophils % 2.1 %; Immature Platelets 8.1 % (1.1-6.1); Lymphocytes # 1.8 K/mcL (0.6-4.6); Lymphocytes % 24.9 %; Mean Corpuscular HGB Conc 29.4 g/dL (31.6-35.5); Mean Corpuscular Hemoglobin 26.4 pg (28.0-33.3); Mean Platelet Volume 11.9 fL (9.4-12.4); Monocytes # 0.8 K/mcL (0.0-1.3); Monocytes % 11.2 %; Neutrophils # 4.3 K/mcL (1.6-8.9); Red Cell Distribution Width 14.7 % (11.5-14.5); Segmented Neutrophils % 60.8 %
[2018-01-28 06:28] LABS: Platelet Count 95 K/mcL (140-400)
[2018-01-28 06:29] LABS: INR 1.9; Prothrombin Time 20.9 Seconds (9.4-12.1)
[2018-01-28 06:41] LABS: Calcium 8.7 mg/dL (8.6-10.3); Potassium 3.8 mEq/L (3.5-5.1)
--- NOTE | 2018-01-28 09:11 | Internal Med Progress Note ---
<Verónica Cisse R - Last Filed: 01/28/18 13:54> Hospitalist Progress Note - Encounter Date of Encounter: 01/28/18 Time of Encounter: 08:30 - Subjective Interval History: 01/28 no acute events overnight. Patient continues to be on Lasix day 2 of 40 mg PO BID. Her telemtrey is unremarkable. Patient continues to have R shoulder back. Continue Percoset for rest of stay. Her Is/Os as of today are [id number]. She endorses no worsening SOB, chest pain, orthopnea, PND. Patient's leg pain is the same without any erythema, increasing tenderness, or exudates. 01/27 Ms. Garibay is a 72 year old female with a past medical history of diastolic HF, afib, T2DM, hyperlipidemia, HTN, and DARREN non-compliant with CPAP use who presented to the ED with progressively worsening SOB. Pt went in for her stress test this morning, will have part 2 tomorrow. Complaining of chronic non- reproducible 9/10 right-sided chest pain radiating to right axilla and back and 8/10 leg pain. No leg erythema or edema. States she asked for Percocet from the night nurse and that she routinely takes Percocet and Amitriptyline for leg pain. ROS General: no fever/chills, fatigue CV: right-sided chest pain Resp: no SOB GI: no n/v, diarrhea, constipation : no dysuria, hematuria Neuro: numbness/tingling - Exam Vitals: Temp Pulse Resp BP Pulse Ox 97.7 F 73 19 123/62 99 01/28/18 06:53 01/28/18 06:53 01/28/18 06:53 01/28/18 06:53 01/28/18 06:53 Exam: Gen: alert and oriented, no respiratory distress Skin: bruises throughout upper and lower extremities, tight skin on legs bilaterally ENT: no lymphadenopathy CV: RRR, no murmurs, carotid bruits, leg edema Resp: CTAB, no wheezes GI:diminished bowel sounds, no tenderness upon palpation - Assessment and Plan (1) Acute on chronic congestive heart failure Current Visit: Yes Status: Acute Assessment and Plan: Etiology- likey due to non compliance on her CPAP, patient has a Hx of HTN- takes lisinopril 10mg Evidence: CX cardiomegaly, SOB on admission, orthopnea, PND - Status :currently she is satting at 98% on room air. Stress test done this morning, part 2 tomorrow. awaiting results. Echo showed an EF 55, pateint weight has changed from from 96.162 kgs to 96.5 kgs. Plan: Continue IV diuretics. Fluid restriction., Strict Is/Os. Monitor electrolytes. (2) Diabetes mellitus Current Visit: Yes Status: Chronic Assessment and Plan: Evidence: Hyperglycemia, polydipsia, polyuria -Status: Blood glucose 144, fluid restriction Plan: Monitor blood glucose, continue current insulin regimen. (3) A-fib Current Visit: Yes Status: Chronic Assessment and Plan: Etiology: CHF Evidence: EKG on 01/26/2018 at 1706 shows atrial fibrillation with heart rate 81 -Status: In sinus rhythm. Plan: On Coumadin. Current INR 1.9. (4) CKD (chronic kidney disease) stage 3, GFR 30-59 ml/min Current Visit: Yes Status: Chronic Assessment and Plan: Etiology: CHF Evidence: Est GFR 33, pedal edema, nocturia -Status: Current creatinine 1.55. Baseline between 1.3 and 1.6. Plan: Continue to follow renal function closely. (5) DARREN (obstructive sleep apnea) Current Visit: Yes Status: Acute Assessment and Plan: Etiology: obesity, BMI 37.7 Plan: Use CPAP (6) Essential hypertension Current Visit: Yes Status: Chronic Assessment and Plan: Evidence: Elevated BP -Status: Current BP 123/62 Plan: On Toprol. Will continue to monitor and adjust accordingly. (7) DVT prophylaxis Current Visit: Yes Status: Acute Assessment and Plan: Plan: continue Coumadin - Time Spent with Patient Total time spent is greater than 50% in coordination of care (as documented) at patient's floor/unit and/or counseling patient: Internal Medicine: Result - Labs CBC & Chem 7: 01/28/18 05:58 01/28/18 05:58 Labs: Short CBC 01/28/18 Range/Units 05:58 WBC 7.1 (4.3-11.1) K/mcL Hgb 9.0 L (11.5-15.4) g/dL Hct 30.6 L (35.3-44.9) % Plt Count 95 L (140-400) K/mcL Neutrophils # 4.3 (1.6-8.9) K/mcL BMP 01/28/18 05:58 Sodium 141 Potassium 3.8 Chloride 104 Carbon Dioxide 30 H BUN 38 H Creatinine 1.55 H Glucose 144 H Calcium 8.7 - ABG Interpretation ABG results: PT/INR, D-dimer PT 20.9 Seconds (9.4-12.1) H 01/28/18 05:58 - Impressions Impressions Echocardiogram 01/27/18 07:00 Impressions: LVEF 55%. Normal LV chamber size, wall thickness and function. Mildly dilated right ventricle. Mild right ventricular hypokinesis. Mildly dilated left atrium. Mild-moderate pulmonic regurgitation. Moderate pulmonary hypertension. Estimated RA pressure is 10 mmHg. Left Ventricular Wall Motion: Rest Echo Findings All wall segments showed normal motion. Findings: Study Quality * Technically adequate exam. ECG Findings * Atrial flutter. Left Ventricle * LVEF 55%. * Normal LV chamber size, wall thickness and function. * Indeterminate diastolic function. Right Ventricle * Mildly dilated right ventricle. * Mild right ventricular hypokinesis. Left Atrium * Mildly dilated left atrium. Right Atrium * Normal right atrial size. Interatrial Septum * Interatrial septum not well evaluated. Aortic Valve * Mildly calcified aortic valve leaflets. * No aortic regurgitation. * No aortic stenosis. Mitral Valve * Normal mitral valve structure and function. Tricuspid Valve * Trace tricuspid regurgitation. * Estimated RVSP is 54 mmHg. * Estimated RA pressure is 10 mmHg. * Moderate pulmonary hypertension. Pulmonic Valve * Mild-moderate pulmonic regurgitation. * Pulmonic valve not well visualized. Aorta * Normally sized aortic root. Pericardium * The pericardium appears normal. IVC * Normal IVC dimensions and inspiratory collapse. - VTE Reasons for not Prescribing Prophylaxis: Not indicated-Anticoagulated or INR therapeutic Consult Discharge Plan - Plan Referrals: Gabe Montano Jr, MD [Primary Care Provider] - <Ramin Bustos - Last Filed: 01/28/18 17:07> Hospitalist Progress Note - Encounter Date of Encounter: 01/28/18 Time of Encounter: 14:50 - Subjective Interval History: Patient is feeling much better today. She does continue to have exertional dyspnea. No chest pain. Underwent part of a stress test today. She reports more pain in her right shoulder which is chronic for her. - Exam Vitals: Temp Pulse Resp BP Pulse Ox 98.0 F 87 18 139/79 98 01/28/18 15:52 01/28/18 15:52 01/28/18 15:52 01/28/18 15:52 01/28/18 15:52 - Assessment and Plan (1) Acute on chronic congestive heart failure Current Visit: Yes Status: Acute Assessment and Plan: Responded well to diuretics. Will continue intravenous diuretics. Continue to monitor vital signs closely and renal function. (2) Diabetes mellitus Current Visit: Yes Status: Chronic Assessment and Plan: Blood sugars are intermittently elevated. We will add morning dose of Levemir. (3) A-fib Current Visit: Yes Status: Chronic Assessment and Plan: Rate controlled and in sinus rhythm. On anticoagulation with Coumadin. (4) CKD (chronic kidney disease) stage 3, GFR 30-59 ml/min Current Visit: Yes Status: Chronic Assessment and Plan: Renal function is stable. We will continue to monitor as patient receives diuretics. (5) DVT prophylaxis Current Visit: Yes Status: Acute Assessment and Plan: On Coumadin (6) DARREN (obstructive sleep apnea) Current Visit: Yes Status: Acute Assessment and Plan: CPAP use when lying down (7) Essential hypertension Current Visit: Yes Status: Chronic Assessment and Plan: Controlled. continue current medications. - Time Spent with Patient Total time spent is greater than 50% in coordination of care (as documented) at patient's floor/unit and/or counseling patient: Internal Medicine: Result - Labs CBC & Chem 7: 01/28/18 05:58 01/28/18 05:58 Labs: Short CBC 01/28/18 Range/Units 05:58 WBC 7.1 (4.3-11.1) K/mcL Hgb 9.0 L (11.5-15.4) g/dL Hct 30.6 L (35.3-44.9) % Plt Count 95 L (140-400) K/mcL Neutrophils # 4.3 (1.6-8.9) K/mcL BMP 01/28/18 05:58 Sodium 141 Potassium 3.8 Chloride 104 Carbon Dioxide 30 H BUN 38 H Creatinine 1.55 H Glucose 144 H Calcium 8.7 - ABG Interpretation ABG results: PT/INR, D-dimer PT 20.9 Seconds (9.4-12.1) H 01/28/18 05:58 - Attending Attestation The history, physical exam, and medical decision making was performed by the medical student either while I was physically present and actively involved or I personally re-performed the exam and medical decision making. I have verified the accuracy of the medical student's documentation with regards to the history, physical exam findings, and medical decision making. <Verónica Cisse - Last Filed: 01/28/18 13:54> (1) Acute on chronic congestive heart failure Qualifiers: Heart failure type: diastolic Qualified Code(s): I50.33 - Acute on chronic diastolic (congestive) heart failure (2) Diabetes mellitus Qualifiers: Diabetes mellitus type: type 2 Diabetes mellitus fci insulin use: with terminal operator use Diabetes mellitus complication status: with ophthalmic complications (3) A-fib Qualifiers: Atrial fibrillation type: paroxysmal Qualified Code(s): I48.0 - Paroxysmal atrial fibrillation <Ramin Bustos - Last Filed: 01/28/18 17:07> (1) Acute on chronic congestive heart failure Qualifiers: Heart failure type: diastolic Qualified Code(s): I50.33 - Acute on chronic diastolic (congestive) heart failure (2) Diabetes mellitus Qualifiers: Diabetes mellitus type: type 2 Diabetes mellitus terminal operator insulin use: with fci use Diabetes mellitus complication status: with kidney complications Diabetes mellitus complication detail: with chronic kidney disease Chronic kidney disease stage: stage 3 (moderate) Qualified Code(s): E11.22 - Type 2 diabetes mellitus with diabetic chronic kidney disease; N18.3 - Chronic kidney disease, stage 3 (moderate); Z79.4 - half-way (current) use of 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
[2018-01-28] MEDS: Metoprolol XL (24 HR) Succ 50 MG TAB.ER.24H PO SCH (09:14)
[2018-01-28] MEDS: Insulin LISPRO 300 UNITS/3 ML VIAL SQ SCH ×4 (09:15→21:12)
[2018-01-28] MEDS ORDERED: *HR* OxyCODONE/APAP 5/325 TABLET PO PRN (11:39)
[2018-01-28] MEDS: *HR* OxyCODONE/APAP 5/325 TABLET PO PRN ×2 (12:06→21:15)
[2018-01-28] MEDS: Aspirin 81 MG TAB.CHEW PO SCH (17:01)
[2018-01-28] MEDS ORDERED: *HR* Warfarin 2 MG TABLET PO ONE (18:00)
[2018-01-28] MEDS: Insulin DETEMIR 100 UNIT/ML X5UNITS SQ SCH (21:11)
[2018-01-29 05:28] LABS: Basophils % 0.6 %; Eosinophils # 0.2 K/mcL (0.0-0.6); Eosinophils % 2.2 %; Hematocrit 31.6 % (35.3-44.9); Hemoglobin 9.3 g/dL (11.5-15.4); Immature Granulocytes % 0.4 % (0-4); Lymphocytes # 1.8 K/mcL (0.6-4.6); Lymphocytes % 25.6 %; Mean Corpuscular HGB Conc 29.4 g/dL (31.6-35.5); Mean Corpuscular Hemoglobin 26.3 pg (28.0-33.3); Mean Corpuscular Volume 89.5 fL (83.0-100.0); Mean Platelet Volume 11.8 fL (9.4-12.4); Monocytes # 0.6 K/mcL (0.0-1.3); Monocytes % 8.6 %; Neutrophils # 4.5 K/mcL (1.6-8.9); Platelet Count 102 K/mcL (140-400); Red Blood Count 3.53 M/mcL (3.82-4.97); Red Cell Distribution Width 14.6 % (11.5-14.5); Segmented Neutrophils % 62.6 %
[2018-01-29 05:32] LABS: Prothrombin Time 22.7 Seconds (9.4-12.1)
[2018-01-29 05:46] LABS: Calcium 8.8 mg/dL (8.6-10.3)
[2018-01-29] MEDS ORDERED: Furosemide 40 MG TABLET PO SCH (08:15)
[2018-01-29] MEDS ORDERED: Insulin DETEMIR 100 UNIT/ML X5UNITS SQ SCH (09:00)
[2018-01-29] MEDS: Metoprolol XL (24 HR) Succ 50 MG TAB.ER.24H PO SCH (09:37)
[2018-01-29] MEDS: Insulin LISPRO 300 UNITS/3 ML VIAL SQ SCH ×2 (09:37→12:00)
[2018-01-29 10:53] VITALS: BP 162/90
--- NOTE | 2018-01-29 12:23 | Electrocardiograph Report ---
[address] [address] Test Date: 2018-01-26 Pat Name: Smita Garibay Department: EXAM19 Room: 2A41 Gender: F Correctional Counselor: : 1945 Requested By: Narda Logan Order Number: [id number] Reading MD: Randi Benjamin Measurements Intervals Stanley Rate: 81 P: ID: QRS: 28 QRSD: 78 T: QT: 394 QTc: 446 Interpretive Statements Atrial fibrillation Low voltage, precordial leads Borderline repolarization abnormality Electronically Signed On 01-29-2018 12:21:26 EDT by Randi Benjamin
--- NOTE | 2018-01-29 12:27 | Discharge Summary ---
- NOTES TO OUTPATIENT PROVIDER Notes to Outpatient Provider: Patient with a history of diastolic congestive heart failure was hospitalized here with acute congestive heart failure. She was treated with intravenous Lasix and her symptoms have significantly improved. She is now stable to be discharged home. She will be placed on fluid restriction and continue Lasix. She also underwent cardiac stress test as she had complained of some right-sided chest pain. Stress test has been negative. She will follow up with her paint roller winder after discharge for further management. Orders not resulted at time of discharge: Pending orders 01/27/18 11:38 NM steff perf SPECT multi [NM] Routine 01/30/18 04:00 INR/PT [Prothrombin Time INR] [COAG] AM 0400 Date of Encounter: 01/29/18 Time of Encounter: 12:25 - Discharge Diagnosis (1) Acute on chronic congestive heart failure Priority: Primary Status: Acute Qualifiers: Heart failure type: diastolic Qualified Code(s): I50.33 - Acute on chronic diastolic (congestive) heart failure (2) Diabetes mellitus Priority: Secondary Status: Chronic Qualifiers: Diabetes mellitus type: type 2 Diabetes mellitus long term care social worker insulin use: with long term care social worker use Diabetes mellitus complication status: with kidney complications Diabetes mellitus complication detail: with chronic kidney disease Chronic kidney disease stage: stage 3 (moderate) Qualified Code(s): E11.22 - Type 2 diabetes mellitus with diabetic chronic kidney disease; N18.3 - Chronic kidney disease, stage 3 (moderate); Z79.4 - longterm (current) use of insulin (3) A-fib Priority: Secondary Status: Chronic Qualifiers: Atrial fibrillation type: paroxysmal Qualified Code(s): I48.0 - Paroxysmal atrial fibrillation (4) CKD (chronic kidney disease) stage 3, GFR 30-59 ml/min Priority: Secondary Status: Chronic (5) DVT prophylaxis Priority: Secondary Status: Acute (6) DARREN (obstructive sleep apnea) Priority: Secondary Status: Acute (7) Essential hypertension Priority: Secondary Status: Chronic Hospital course: Ms. Garibay is a 72 year old female Patient with a history of diastolic congestive heart failure, atrial fibrillation, hypertension, diabetes was hospitalized here with acute congestive heart failure after he presented to the ER with complaints of orthopnea, exertional dyspnea and increased weight gain. She was treated with intravenous Lasix and her symptoms have significantly improved. She is now stable to be discharged home. She will be placed on fluid restriction and continue Lasix. She also underwent cardiac stress test as she had complained of some right-sided chest pain. Stress test has been negative. She will follow up with her paint roller winder after discharge for further management. Discharge discussed with: patient, nurse - Time Spent with Patient Total time spent providing and/or coordinating discharge services: Less than 30 minutes (25 min) - Discharge Medications Home Medications: Aspirin 81 mg PO QPM 12/31/14 [History] Furosemide [Lasix] 80 mg PO BID 12/31/14 [History] Insulin Glargine,Hum.rec.anlog [Lantus Solostar] 60 unit SQ BID 12/31/14 [ History] Amitriptyline [Elavil] 25 mg PO HS 01/26/18 [History] Metoprolol Succinate 200 mg PO DAILY 01/26/18 [History] OxyCODONE/APAP 5/325 [Percocet 5/325 MG] 1 - 2 tab PO Q6HR PRN 01/26/18 [History ] Quinapril HCl [Accupril] 10 mg PO DAILY 01/26/18 [History] Simvastatin [Zocor] 40 mg PO HS 01/26/18 [History] Vitamin B Complex [B Complex] 1 tab PO DAILY 01/26/18 [History] Warfarin [Coumadin] 1 mg PO SUTUTHSA 01/27/18 [History] Warfarin [Coumadin] 2 mg PO MOWEFR 01/27/18 [History] Allergies/Adverse Reactions: 3 Allergy/AdvReac Type Severity Reaction Status Date / Time bacitracin Allergy Rash Verified 01/10/17 13:17 [From Neosporin ([id number])] Neomycin Allergy Rash Verified 01/10/17 13:17 [From Neosporin ([id number])] polymyxin B Allergy Rash Verified 01/10/17 13:17 [From Neosporin ([id number])] Date of admission: 01/26/18 23:24 Primary care physician: Gabe Montano Jr, MD Discharging clinician: Ramin Bustos Anticipated date of discharge: 01/29/18 - Constitutional Vitals: Temp Pulse Resp BP Pulse Ox 97.7 F 84 19 162/90 94 01/29/18 10:52 01/29/18 10:52 01/29/18 10:52 01/29/18 10:52 01/29/18 10:52 General appearance: Present: cooperative, A&O X 3, obese, answers questions appropriately Exam: . - Neck Neck exam general surgery: Present: supple, trachea midline. Absent: lymphadenopathy - Respiratory Respiratory exam: Present: CTAB. Absent: accessory muscle use, rales, rhonchi, wheezes - Cardiovascular Cardiovascular exam: Present: RRR, +S1, +S2. Absent: diastolic murmur, gallop, rubs, systolic murmur - GI/Abdominal GI/Abdominal exam: Present: normal bowel sounds, soft, no peritoneal signs. Absent: distended, tenderness - Extremities Exam Extremities exam: Present: warm, radial pulses palpable and symmetrical. Absent : calf tenderness, cyanotic, pedal edema - Neurological Exam Neurological exam: Present: CN II-XII intact, oriented X3, no focal deficits. Absent: facial droop, speech deficit - Skin Skin exam: Present: dry, intact - Patient Status Disposition: Home, Self-Care Condition: Good Functional capacity at discharge: independent ambulation Overall status at discharge: patient is progressing back to baseline - Discharge Instructions Instructions: Heart Failure (DC), Diabetes Mellitus Type 2 in Adults (DC), Chronic Hypertension (DC) Follow Up With: Gabe Montano Jr, MD [Primary Care Provider] - (in 1 week) Verito Pacheco DO [Partnered Physician] - (in 1-2 weeks) - Diet and Activity Activity: increase activity as tolerated Diet: diabetic diet, low fat, low cholesterol, low salt diet, other (Fluid restriction to 1.5 L per day) - VTE Reasons for not Prescribing Prophylaxis: Not indicated-Anticoagulated or INR therapeutic
[2018-01-29] MEDS ORDERED: *HR* Warfarin 1 MG TABLET PO ONE (18:00)
== END 2018-01-29 13:41 | disposition home or self-care (01) ==
LOC: 2ANU 16:38 → EMEROOARM 16:38 → SUATTDRO 23:24 → 2ANU 01-27 00:08
PROVIDERS: ADMIT Internal Medicine; ATTEND Internal Medicine

== ENCOUNTER 2018-06-04 10:23 | Inpatient (IN) ==
[2018-06-04] MEDS ORDERED: *HR* Morphine 2 MG/ML SYRINGE IVP ONE (10:31)
[2018-06-04] MEDS ORDERED: *HR* Dextrose 50 % in Water (Syg) 50 ML SYRINGE IVP ONE (10:33)
--- NOTE | 2018-06-04 11:05 | Emergency Department Note ---
Disposition Clinical Impression: Hypoglycemia UTI (urinary tract infection) Qualifiers: Urinary tract infection type: site unspecified Hematuria presence: without hematuria Qualified Code(s): N39.0 - Urinary tract infection, site not specified Closed intertrochanteric fracture of left hip Qualifiers: Encounter type: initial encounter Fracture alignment: displaced Qualified Code(s): S72.142A - Displaced intertrochanteric fracture of left femur, initial encounter for closed fracture Disposition: Admitted As Inpatient Condition: Fair Time of Disposition: 16:16 General Adult HPI - General Chief complaint: ED Fall Stated complaint: Fall /hypoglycemic Time Seen by Provider: 06/04/18 10:31 Source: patient, EMS Mode of arrival: EMS Limitations: no limitations Nursing Notes Reviewed: Yes Vital Signs Reviewed: Yes - History of Present Illness HPI Narrative: Patient is a 72-year-old female presenting by EMS for evaluation of a fall as well as altered mental status. According to EMS patient fell after getting up from bed this morning. Patient herself is mainly complaining of left-sided hip pain. Obtaining history is limited given that the patient will not sit still on the bed and appears to be in mild distress however she is oriented. Squad states the patient lives at home and her was present for the fall and states that the fall happened and EMS was called she is not on the ground for a prolonged period of time. It do not believe she has a history of being on blood thinners. She received no medications and route. - Related Data Home Medications Medication Instructions Recorded Confirmed Aspirin 81 mg PO QPM 12/31/14 01/26/18 Furosemide [Lasix] 80 mg PO BID 12/31/14 01/26/18 Insulin Glargine,Hum.rec.anlog 60 unit SQ BID 12/31/14 01/26/18 [Lantus Solostar] Amitriptyline [Elavil] 25 mg PO HS 01/26/18 01/26/18 Metoprolol Succinate 200 mg PO DAILY 01/26/18 01/26/18 OxyCODONE/APAP 5/325 [Percocet 1 - 2 tab PO Q6HR PRN 01/26/18 01/26/18 5/325 MG] Quinapril HCl [Accupril] 10 mg PO DAILY 01/26/18 01/26/18 Simvastatin [Zocor] 40 mg PO HS 01/26/18 01/26/18 Vitamin B Complex [B Complex] 1 tab PO DAILY 01/26/18 01/26/18 Warfarin [Coumadin] 1 mg PO SUTUTHSA 01/27/18 01/27/18 Warfarin [Coumadin] 2 mg PO MOWEFR 01/27/18 01/27/18 Allergies Allergy/AdvReac Type Severity Reaction Status Date / Time bacitracin Allergy Rash Verified 06/04/18 10:38 [From Neosporin ([id number])] Neomycin Allergy Rash Verified 06/04/18 10:38 [From Neosporin ([id number])] polymyxin B Allergy Rash Verified 06/04/18 10:38 [From Neosporin ([id number])] All systems ED: reviewed and negative except as stated. Review of Systems: As Per HPI Constitutional: Denies: fever, chills Cardiovascular: Denies: chest pain, palpitations, dyspnea on exertion, edema, syncope Respiratory: Denies: cough, dyspnea Gastrointestinal: Denies: abdominal pain, nausea, vomiting Genitourinary: Denies: urgency, dysuria, frequency Musculoskeletal: Denies: back pain, neck pain Integumentary: Denies: rash Neurological: Denies: headache, weakness, numbness, paresthesias, confusion Past Medical History - Past Medical History Attestation: Yes The following information was validated with the patient. Medical history: Reports: atrial fibrillation, diabetes, hyperlipidemia, hypertension Surgical history: Reports: appendectomy, cholecystectomy, hysterectomy, knee replacement, other Psychiatric history: Reports: no psych history CERTIFIED NURSE MIDWIFE history: Reports: no CERTIFIED NURSE MIDWIFE history - Social History Smoking Status: Former smoker Smokeless Tobacco Status: No Alcohol use: Reports: none Drug use: Reports: none Physical Exam - General Limitations: altered mental status General appearance: alert, anxious - Head Head exam: atraumatic, normocephalic, normal inspection - Eye Eye exam: Present: normal appearance, PERRL, EOMI - ENT ENT exam: normal exam, normal oropharynx, mucous membranes dry - Neck Neck exam: Present: normal inspection, full ROM, trachea midline - Chest Chest inspection: Present: normal inspection, symmetric chest wall rise. Absent: tenderness - Respiratory Respiratory exam: Present: normal lung sounds bilaterally. Absent: respiratory distress, wheezes - Cardiovascular Cardiovascular exam: Present: regular rate, normal rhythm, normal heart sounds, +S1, +S2 - Abdominal Exam Abdominal exam: Present: soft, Non-Tender, normal bowel sounds - Extremities Exam Extremities exam: Present: full ROM, tenderness (left hip palpation and ROM. ), normal capillary refill. Absent: pedal edema - Back Exam Back exam: Present: normal inspection, full ROM. Absent: tenderness, CVA tenderness (R), CVA tenderness (L), vertebral tenderness - Neurological Exam Neurological exam: Present: alert, oriented X3 - Psychiatric Psychiatric exam: Present: normal affect, normal mood - Skin Skin exam: Present: warm, dry, intact, normal color Course Course Narrative: Patient initially arrived hypoglycemic and altered she received an amp of dextrose and her symptoms improved. She will undergo trauma evaluation for any injury as I suspect possibly left hip pathology given her exam findings. Also continue to monitor the patient's mental status. - Reevaluation(s) Reevaluation #1: Patient underwent trauma evaluation for her fall. She had a CT of the head and the brain that showed no acute intracranial abnormality. There were several chronic findings which include increased pituitary size as well as a cystic lesion of the right lobe of her thyroid that will need follow-up. Her chest x- ray was negative. No cervical spine injury seen on CT scan. Patient has a mildly displaced intertrochanteric fracture of the left femur. Her lab work was unremarkable other then chronic findings. Her urine is concerning for UTI. Overall the patient will be admitted for her left hip fracture as well as urinary tract infection. The patient's hip fracture was discussed with the orthopedist operator catalyst concentration Dr. Nguyen and he agrees to see the patient. He also requested additional imaging of the left hip. Patient also went further imaging of her knee and ankle which were both negative. Patient will be admitted for pain control as well as consultation with orthopedics as well as management of her home medications due to her hypoglycemia secondary to overmedication with insulin. Vital Signs Temperature 97.9 F 06/04/18 10:30 Pulse Rate 89 06/04/18 10:30 Respiratory Rate 20 06/04/18 10:30 Blood Pressure 147/94 06/04/18 10:30 O2 Sat by Pulse Oximetry 97 06/04/18 10:30 Temperature 97.9 F 06/04/18 10:30 Pulse Rate 84 06/04/18 12:00 Respiratory Rate 20 06/04/18 12:00 Blood Pressure 135/78 06/04/18 12:00 O2 Sat by Pulse Oximetry 97 06/04/18 12:29 Oxygen Delivery Oxygen Delivery Room Air Medical Decision Making - Medical Records Medical records reviewed: Yes I reviewed the patient's medical records. - Lab Data Lab results reviewed: Yes I reviewed the patient's lab results. Result diagrams: 06/04/18 10:53 06/04/18 12:20 Lab Results 06/04/18 06/04/18 06/04/18 Range/Units 10:53 10:53 10:53 WBC 9.6 (4.3-11.1) K/mcL RBC 3.75 L (3.82-4.97) M/mcL Hgb 10.3 L (11.5-15.4) g/dL Hct 35.4 (35.3-44.9) % MCV 94.4 (83.0-100.0) fL MCH 27.5 L (28.0-33.3) pg MCHC 29.1 L (31.6-35.5) g/dL RDW 20.7 H (11.5-14.5) % Plt Count 175 (140-400) K/mcL MPV 11.9 (9.4-12.4) fL Immature Gran % 1.0 (0-4) % Seg Neutrophils % 74.2 % Lymphocytes % 15.7 % Monocytes % 7.5 % Eosinophils % 1.3 % Basophils % 0.3 % Neutrophils # 7.1 (1.6-8.9) K/mcL Lymphocytes # 1.5 (0.6-4.6) K/mcL Monocytes # 0.7 (0.0-1.3) K/mcL Eosinophils # 0.1 (0.0-0.6) K/mcL Basophils # 0.0 (0.0-0.2) K/mcL Nucleated RBCs/100 WBC 0.2 H (0) /100 WBC Sodium Cancelled Potassium Cancelled Chloride Cancelled Carbon Dioxide Cancelled BUN Cancelled Creatinine Cancelled Est GFR ( Amer) Cancelled Est GFR (Non-Af Amer) Cancelled BUN/Creatinine Ratio Cancelled Glucose Cancelled Calculated Osmolality Cancelled Calcium Cancelled Total Bilirubin Cancelled Direct Bilirubin Cancelled Indirect Bilirubin Cancelled AST Cancelled ALT Cancelled Alkaline Phosphatase Cancelled Troponin I < 0.03 (< 0.04) ng/mL Serum Total Protein Cancelled Albumin Cancelled Globulin Cancelled Albumin/Globulin Ratio Cancelled TSH 2.034 (0.340-5.600) mcIU/mL Urine Color (Yellow) Urine Clarity (Clear) Urine pH (5.0-8.0) pH Units Ur Specific Crocker (1.010-1.025) Urine Protein (Neg-Trace) mg/dL Urine Glucose (UA) (Normal) mg/dL Urine Ketones (Negative) mg/dL Urine Blood (Negative) Urine Nitrite (Negative) Urine Bilirubin (Negative) Urine Urobilinogen (Normal) mg/dL Ur Leukocyte Esterase (Negative) Urine Microscopic RBC (0-3) per hpf Urine Microscopic WBC (0-3) per hpf Ur Squamous Epith Cells (None-Few) per lpf Urine Bacteria (None-Few) per hpf Hyaline Casts (None-Few) per lpf Ur Culture Indicated? (NO) Ethyl Alcohol < 10 (Less than 10) mg/dL Specimen Rejected Hemolyzed 06/04/18 06/04/18 Range/Units 12:12 12:20 WBC (4.3-11.1) K/mcL RBC (3.82-4.97) M/mcL Hgb (11.5-15.4) g/dL Hct (35.3-44.9) % MCV (83.0-100.0) fL MCH (28.0-33.3) pg MCHC (31.6-35.5) g/dL RDW (11.5-14.5) % Plt Count (140-400) K/mcL MPV (9.4-12.4) fL Immature Gran % (0-4) % Seg Neutrophils % % Lymphocytes % % Monocytes % % Eosinophils % % Basophils % % Neutrophils # (1.6-8.9) K/mcL Lymphocytes # (0.6-4.6) K/mcL Monocytes # (0.0-1.3) K/mcL Eosinophils # (0.0-0.6) K/mcL Basophils # (0.0-0.2) K/mcL Nucleated RBCs/100 WBC (0) /100 WBC Sodium 142 Potassium 3.8 Chloride 105 Carbon Dioxide 30 H BUN 28 H Creatinine 1.52 H Est GFR ( Amer) 41 L Est GFR (Non-Af Amer) 33 L BUN/Creatinine Ratio 18 Glucose 79 Calculated Osmolality 298 Calcium 9.0 Total Bilirubin 0.9 Direct Bilirubin 0.3 H Indirect Bilirubin 0.6 AST 34 ALT 26 Alkaline Phosphatase 227 H Troponin I (< 0.04) ng/mL Serum Total Protein 6.6 Albumin 3.8 Globulin 2.8 Albumin/Globulin Ratio 1.4 TSH (0.340-5.600) mcIU/mL Urine Color Yellow (Yellow) Urine Clarity Hazy A (Clear) Urine pH 6.5 (5.0-8.0) pH Units Ur Specific Crocker 1.013 (1.010-1.025) Urine Protein Negative (Neg-Trace) mg/dL Urine Glucose (UA) Normal (Normal) mg/dL Urine Ketones Negative (Negative) mg/dL Urine Blood Small H (Negative) Urine Nitrite Negative (Negative) Urine Bilirubin Negative (Negative) Urine Urobilinogen Normal (Normal) mg/dL Ur Leukocyte Esterase Large H (Negative) Urine Microscopic RBC 5-15 H (0-3) per hpf Urine Microscopic WBC TNTC H (0-3) per hpf Ur Squamous Epith Cells Many H (None-Few) per lpf Urine Bacteria Many H (None-Few) per hpf Hyaline Casts None Seen (None-Few) per lpf Ur Culture Indicated? NO. A (NO) Ethyl Alcohol (Less than 10) mg/dL Specimen Rejected - Radiology Data Radiology results reviewed: Yes I reviewed the patient's radiology results. Cervical Spine CT 06/04/18 10:31 IMPRESSION: 1. No acute intracranial abnormality. 2. Mild increased pituitary size without sellar erosion or a mass effect. This has slightly progressed since the prior 2016 exam. If clinically indicated further evaluation with MRI of the brain pituitary protocol could be performed. 3. Normal cervical spine alignment with multilevel degenerative changes. No acute fracture. 4. 1.9 cm complex cystic lesion of the right thyroid lobe, see recommendations. RECOMMENDATIONS: Managing Incidental Thyroid Nodule Detected at CT or MRI or US 1. Further evaluation by thyroid Ultrasound recommended for these incidental nodules: Patient Age 35 years or more - Nodule 1.5 cm in size or greater Note: These recommendations do not apply to pts. w/ increased risk for thyroid cancer or pts. with symptomatic thyroid disease. Recommendations for f/u of Incidental Thyroid Nodules (ITN) found on CT, MR, NM and Extrathyroidal US are based upon the ACR white paper and [place] 3-tiered system for managing ITNs: J Am Malcolm Radiol. 2015 Jun;12(2): 143-50 D/ / 06/04/2018 12:55:06 Bienvenido Styles MD / vero Interpreting Provider: Bienvenido Styles MD Chest X-Ray 06/04/18 10:31 IMPRESSION: No acute findings. D/ / Adrian Lake MD / Adrian Lake MD Interpreting Provider: Adrian Lake MD Head CT 06/04/18 10:31 IMPRESSION: 1. No acute intracranial abnormality. 2. Mild increased pituitary size without sellar erosion or a mass effect. This has slightly progressed since the prior 2016 exam. If clinically indicated further evaluation with MRI of the brain pituitary protocol could be performed. 3. Normal cervical spine alignment with multilevel degenerative changes. No acute fracture. 4. 1.9 cm complex cystic lesion of the right thyroid lobe, see recommendations. RECOMMENDATIONS: Managing Incidental Thyroid Nodule Detected at CT or MRI or US 1. Further evaluation by thyroid Ultrasound recommended for these incidental nodules: Patient Age 35 years or more - Nodule 1.5 cm in size or greater Note: These recommendations do not apply to pts. w/ increased risk for thyroid cancer or pts. with symptomatic thyroid disease. Recommendations for f/u of Incidental Thyroid Nodules (ITN) found on CT, MR, NM and Extrathyroidal US are based upon the ACR white paper and [place]y 3-tiered system for managing ITNs: J Am Malcolm Radiol. 2015 Jun;12(2): 143-50 D/ / 06/04/2018 12:55:06 Bienvenido Styles MD / vero Interpreting Provider: Bienvenido Styles MD Pelvis X-Ray 06/04/18 10:31 IMPRESSION: Mildly displaced intertrochanteric fracture of the left femur. D/ / Howie West MD / Howie West MD Interpreting Provider: Howie West MD Foot X-Ray 06/04/18 13:30 IMPRESSION: 1. Normal left hip alignment. Acute nondisplaced left intertrochanteric fracture. 2. The left tibia/fibula demonstrates no acute fracture. Normal knee and ankle alignment. 3. The left foot demonstrates no acute fracture. D/ / 06/04/2018 15:32:48 Bienvenido Styles MD / vero Interpreting Provider: Bienvenido Styles MD Hip X-Ray 06/04/18 13:30 IMPRESSION: 1. Normal left hip alignment. Acute nondisplaced left intertrochanteric fracture. 2. The left tibia/fibula demonstrates no acute fracture. Normal knee and ankle alignment. 3. The left foot demonstrates no acute fracture. D/ / 06/04/2018 15:32:48 Bienvenido Styles MD / vero Interpreting Provider: Bienvenido Styles MD Tibia/Fibula X-Ray 06/04/18 13:30 IMPRESSION: 1. Normal left hip alignment. Acute nondisplaced left intertrochanteric fracture. 2. The left tibia/fibula demonstrates no acute fracture. Normal knee and ankle alignment. 3. The left foot demonstrates no acute fracture. D/ / 06/04/2018 15:32:48 Bienvenido Styles MD / vero Interpreting Provider: Bienvenido Styles MD - EKG Data EKG #1 EKG attestation: Yes I reviewed and interpreted this EKG. EKG results narrative: EKG done at 12:44 shows atrial fibrillation a rate of 80 bpm. Normal axis. Intervals within normal limits. No signs of see elevation, ST depression or Q waves present.
[2018-06-04 11:10] LABS: Basophils % 0.3 %; Eosinophils # 0.1 K/mcL (0.0-0.6); Eosinophils % 1.3 %; Hematocrit 35.4 % (35.3-44.9); Hemoglobin 10.3 g/dL (11.5-15.4); Lymphocytes # 1.5 K/mcL (0.6-4.6); Lymphocytes % 15.7 %; Mean Corpuscular HGB Conc 29.1 g/dL (31.6-35.5); Mean Corpuscular Hemoglobin 27.5 pg (28.0-33.3); Mean Corpuscular Volume 94.4 fL (83.0-100.0); Mean Platelet Volume 11.9 fL (9.4-12.4); Monocytes # 0.7 K/mcL (0.0-1.3); Monocytes % 7.5 %; Neutrophils # 7.1 K/mcL (1.6-8.9); Nucleated Red Blood Cells 0.2 /100 WBC (0); Platelet Count 175 K/mcL (140-400); Red Blood Count 3.75 M/mcL (3.82-4.97); Red Cell Distribution Width 20.7 % (11.5-14.5); Segmented Neutrophils % 74.2 %
[2018-06-04 11:37] LABS: Troponin I < 0.03 ng/mL (< 0.04)
[2018-06-04 11:38] LABS: Ethanol < 10 mg/dL (Less than 10)
--- NOTE | 2018-06-04 11:44 | Emergency Department Note ---
Disposition Clinical Impression: UTI (urinary tract infection) Qualifiers: Urinary tract infection type: site unspecified Hematuria presence: without hematuria Qualified Code(s): N39.0 - Urinary tract infection, site not specified Closed intertrochanteric fracture of left hip Qualifiers: Encounter type: initial encounter Fracture alignment: nondisplaced Qualified Code(s): S72.145A - Nondisplaced intertrochanteric fracture of left femur, initial encounter for closed fracture Disposition: Admitted As Inpatient Condition: Fair Time of Disposition: 15:32 General Adult HPI - General Chief complaint: ED Fall Stated complaint: Fall /hypoglycemic Time Seen by Provider: 06/04/18 10:31 Source: patient, EMS Mode of arrival: EMS Limitations: altered mental status - Related Data Home Medications Medication Instructions Recorded Confirmed Aspirin 81 mg PO QPM 12/31/14 01/26/18 Furosemide [Lasix] 80 mg PO BID 12/31/14 01/26/18 Insulin Glargine,Hum.rec.anlog 60 unit SQ BID 12/31/14 01/26/18 [Lantus Solostar] Amitriptyline [Elavil] 25 mg PO HS 01/26/18 01/26/18 Metoprolol Succinate 200 mg PO DAILY 01/26/18 01/26/18 OxyCODONE/APAP 5/325 [Percocet 1 - 2 tab PO Q6HR PRN 01/26/18 01/26/18 5/325 MG] Quinapril HCl [Accupril] 10 mg PO DAILY 01/26/18 01/26/18 Simvastatin [Zocor] 40 mg PO HS 01/26/18 01/26/18 Vitamin B Complex [B Complex] 1 tab PO DAILY 01/26/18 01/26/18 Warfarin [Coumadin] 1 mg PO SUTUTHSA 01/27/18 01/27/18 Warfarin [Coumadin] 2 mg PO MOWEFR 01/27/18 01/27/18 Allergies Allergy/AdvReac Type Severity Reaction Status Date / Time bacitracin Allergy Rash Verified 06/04/18 10:38 [From Neosporin ([id number])] Neomycin Allergy Rash Verified 06/04/18 10:38 [From Neosporin ([id number])] polymyxin B Allergy Rash Verified 06/04/18 10:38 [From Neosporin ([id number])] Constitutional: Denies: fever, chills Cardiovascular: Denies: chest pain, palpitations, dyspnea on exertion, edema, syncope Respiratory: Denies: cough, dyspnea Gastrointestinal: Denies: abdominal pain, nausea, vomiting Genitourinary: Denies: urgency, dysuria, frequency Musculoskeletal: Denies: back pain, neck pain Integumentary: Denies: rash Neurological: Denies: headache, weakness, numbness, paresthesias, confusion Past Medical History - Past Medical History Medical history: Reports: atrial fibrillation, diabetes, hyperlipidemia, hypertension Surgical history: Reports: appendectomy, cholecystectomy, hysterectomy, knee replacement, other Psychiatric history: Reports: no psych history CHIEF DIETITIAN history: Reports: no CHIEF DIETITIAN history - Social History Smoking Status: Former smoker Smokeless Tobacco Status: No Alcohol use: Reports: none Drug use: Reports: none Physical Exam - General Limitations: altered mental status General appearance: alert, anxious Course Vital Signs Temperature 97.9 F 06/04/18 10:30 Pulse Rate 89 06/04/18 10:30 Respiratory Rate 20 06/04/18 10:30 Blood Pressure 147/94 06/04/18 10:30 O2 Sat by Pulse Oximetry 97 06/04/18 10:30 Temperature 97.9 F 06/04/18 10:30 Pulse Rate 84 06/04/18 12:00 Respiratory Rate 20 06/04/18 12:00 Blood Pressure 135/78 06/04/18 12:00 O2 Sat by Pulse Oximetry 97 06/04/18 12:29 Oxygen Delivery Oxygen Delivery Room Air Medical Decision Making - Lab Data Result diagrams: 06/04/18 10:53 06/04/18 12:20 Lab Results 06/04/18 06/04/18 06/04/18 Range/Units 10:53 10:53 10:53 WBC 9.6 (4.3-11.1) K/mcL RBC 3.75 L (3.82-4.97) M/mcL Hgb 10.3 L (11.5-15.4) g/dL Hct 35.4 (35.3-44.9) % MCV 94.4 (83.0-100.0) fL MCH 27.5 L (28.0-33.3) pg MCHC 29.1 L (31.6-35.5) g/dL RDW 20.7 H (11.5-14.5) % Plt Count 175 (140-400) K/mcL MPV 11.9 (9.4-12.4) fL Immature Gran % 1.0 (0-4) % Seg Neutrophils % 74.2 % Lymphocytes % 15.7 % Monocytes % 7.5 % Eosinophils % 1.3 % Basophils % 0.3 % Neutrophils # 7.1 (1.6-8.9) K/mcL Lymphocytes # 1.5 (0.6-4.6) K/mcL Monocytes # 0.7 (0.0-1.3) K/mcL Eosinophils # 0.1 (0.0-0.6) K/mcL Basophils # 0.0 (0.0-0.2) K/mcL Nucleated RBCs/100 WBC 0.2 H (0) /100 WBC Sodium Cancelled Potassium Cancelled Chloride Cancelled Carbon Dioxide Cancelled BUN Cancelled Creatinine Cancelled Est GFR ( Amer) Cancelled Est GFR (Non-Af Amer) Cancelled BUN/Creatinine Ratio Cancelled Glucose Cancelled Calculated Osmolality Cancelled Calcium Cancelled Total Bilirubin Cancelled Direct Bilirubin Cancelled Indirect Bilirubin Cancelled AST Cancelled ALT Cancelled Alkaline Phosphatase Cancelled Troponin I < 0.03 (< 0.04) ng/mL Serum Total Protein Cancelled Albumin Cancelled Globulin Cancelled Albumin/Globulin Ratio Cancelled TSH 2.034 (0.340-5.600) mcIU/mL Urine Color (Yellow) Urine Clarity (Clear) Urine pH (5.0-8.0) pH Units Ur Specific [place] (1.010-1.025) Urine Protein (Neg-Trace) mg/dL Urine Glucose (UA) (Normal) mg/dL Urine Ketones (Negative) mg/dL Urine Blood (Negative) Urine Nitrite (Negative) Urine Bilirubin (Negative) Urine Urobilinogen (Normal) mg/dL Ur Leukocyte Esterase (Negative) Urine Microscopic RBC (0-3) per hpf Urine Microscopic WBC (0-3) per hpf Ur Squamous Epith Cells (None-Few) per lpf Urine Bacteria (None-Few) per hpf Hyaline Casts (None-Few) per lpf Ur Culture Indicated? (NO) Ethyl Alcohol < 10 (Less than 10) mg/dL Specimen Rejected Hemolyzed 01/12/19 01/12/19 Range/Units 12:12 12:20 WBC (4.3-11.1) K/mcL RBC (3.82-4.97) M/mcL Hgb (11.5-15.4) g/dL Hct (35.3-44.9) % MCV (83.0-100.0) fL MCH (28.0-33.3) pg MCHC (31.6-35.5) g/dL RDW (11.5-14.5) % Plt Count (140-400) K/mcL MPV (9.4-12.4) fL Immature Gran % (0-4) % Seg Neutrophils % % Lymphocytes % % Monocytes % % Eosinophils % % Basophils % % Neutrophils # (1.6-8.9) K/mcL Lymphocytes # (0.6-4.6) K/mcL Monocytes # (0.0-1.3) K/mcL Eosinophils # (0.0-0.6) K/mcL Basophils # (0.0-0.2) K/mcL Nucleated RBCs/100 WBC (0) /100 WBC Sodium 142 Potassium 3.8 Chloride 105 Carbon Dioxide 30 H BUN 28 H Creatinine 1.52 H Est GFR ( Amer) 41 L Est GFR (Non-Af Amer) 33 L BUN/Creatinine Ratio 18 Glucose 79 Calculated Osmolality 298 Calcium 9.0 Total Bilirubin 0.9 Direct Bilirubin 0.3 H Indirect Bilirubin 0.6 AST 34 ALT 26 Alkaline Phosphatase 227 H Troponin I (< 0.04) ng/mL Serum Total Protein 6.6 Albumin 3.8 Globulin 2.8 Albumin/Globulin Ratio 1.4 TSH (0.340-5.600) mcIU/mL Urine Color Yellow (Yellow) Urine Clarity Hazy A (Clear) Urine pH 6.5 (5.0-8.0) pH Units Ur Specific [place] 1.013 (1.010-1.025) Urine Protein Negative (Neg-Trace) mg/dL Urine Glucose (UA) Normal (Normal) mg/dL Urine Ketones Negative (Negative) mg/dL Urine Blood Small H (Negative) Urine Nitrite Negative (Negative) Urine Bilirubin Negative (Negative) Urine Urobilinogen Normal (Normal) mg/dL Ur Leukocyte Esterase Large H (Negative) Urine Microscopic RBC 5-15 H (0-3) per hpf Urine Microscopic WBC TNTC H (0-3) per hpf Ur Squamous Epith Cells Many H (None-Few) per lpf Urine Bacteria Many H (None-Few) per hpf Hyaline Casts None Seen (None-Few) per lpf Ur Culture Indicated? NO. A (NO) Ethyl Alcohol (Less than 10) mg/dL Specimen Rejected Critical Care Time Critical Care Time: No Attestation Statement - Attestation Attestation: I I examined this patient and my medical decision-making was reviewed with the Resident Physician. I agree with the documented findings, disposition and treatment plan as described except to the extent set forth below. Patient to the ED after a fall. Witnessed by her spouse. Patient up playing a left hip pain. She is also noted to be hypoglycemic on the way here by EMS. On exam she is awake alert and confused. Oriented to self and place. Moving the left leg but complains of pain with any flexion of the hip or logrolling. Foot pink and warm. Plan. Blood sugar dextrose and reevaluate. Imaging of the head and lower extremity. Patient reevaluated. More awake alert and appropriate following glucose administration. She is complaining of foot pain at this time. She is a left intertrochanteric hip fracture on pelvic x-ray. We will do more images. is aware of the consult. She has a UTI. Rocephin ordered. Patient will be admitted to medicine. Images reviewed. I do not appreciate any fractures on the foot or tib-fib. Patient is on Coumadin so we will add INR. Cervical Spine CT 06/04/18 10:31 IMPRESSION: 1. No acute intracranial abnormality. 2. Mild increased pituitary size without sellar erosion or a mass effect. This has slightly progressed since the prior 2016 exam. If clinically indicated further evaluation with MRI of the brain pituitary protocol could be performed. 3. Normal cervical spine alignment with multilevel degenerative changes. No acute fracture. 4. 1.9 cm complex cystic lesion of the right thyroid lobe, see recommendations. RECOMMENDATIONS: Managing Incidental Thyroid Nodule Detected at CT or MRI or US 1. Further evaluation by thyroid Ultrasound recommended for these incidental nodules: Patient Age 35 years or more - Nodule 1.5 cm in size or greater Note: These recommendations do not apply to pts. w/ increased risk for thyroid cancer or pts. with symptomatic thyroid disease. Recommendations for f/u of Incidental Thyroid Nodules (ITN) found on CT, MR, NM and Extrathyroidal US are based upon the ACR white paper and Dupree 3-tiered system for managing ITNs: J Am Malcolm Radiol. 2015 Jun;12(2): 143-50 D/ / 06/04/2018 12:55:06 Bienvenido Styles MD / vero Interpreting Provider: Bienvenido Styles MD Chest X-Ray 06/04/18 10:31 IMPRESSION: No acute findings. D/ / Adrian Lake MD / Adrian Lake MD Interpreting Provider: Adrian Lake MD Head CT 06/04/18 10:31 IMPRESSION: 1. No acute intracranial abnormality. 2. Mild increased pituitary size without sellar erosion or a mass effect. This has slightly progressed since the prior 2016 exam. If clinically indicated further evaluation with MRI of the brain pituitary protocol could be performed. 3. Normal cervical spine alignment with multilevel degenerative changes. No acute fracture. 4. 1.9 cm complex cystic lesion of the right thyroid lobe, see recommendations. RECOMMENDATIONS: Managing Incidental Thyroid Nodule Detected at CT or MRI or US 1. Further evaluation by thyroid Ultrasound recommended for these incidental nodules: Patient Age 35 years or more - Nodule 1.5 cm in size or greater Note: These recommendations do not apply to pts. w/ increased risk for thyroid cancer or pts. with symptomatic thyroid disease. Recommendations for f/u of Incidental Thyroid Nodules (ITN) found on CT, MR, NM and Extrathyroidal US are based upon the ACR white paper and Dupree 3-tiered system for managing ITNs: J Am Malcolm Radiol. 2015 Jun;12(2): 143-50 D/ / 06/04/2018 12:55:06 Bienvenido Styles MD / vero Interpreting Provider: Bienvenido Styles MD Pelvis X-Ray 06/04/18 10:31 IMPRESSION: Mildly displaced intertrochanteric fracture of the left femur. D/ / Howie West MD / Howie West MD Interpreting Provider: Howie West MD
[2018-06-04 11:53] LABS: Thyroid Stimulating Hormone 2.034 mcIU/mL (0.340-5.600)
[2018-06-04 12:27] LABS: Bilirubin,Urine Negative (Negative); Blood,Urine Small (Negative); Color,Urine Yellow (Yellow); Glucose,Urine (UA) Normal (Normal); Ketones,Urine Negative (Negative); Leukocyte Esterase,Urine Large (Negative); Nitrite,Urine Negative (Negative); PH,Urine 6.5 pH Units (5.0-8.0); Protein,Urine Negative (Neg-Trace); Specific Gravity,Urine 1.013 (1.010-1.025); Urobilinogen,Urine Normal (Normal)
[2018-06-04 12:28] LABS: Bacteria,Urine Many per hpf (None-Few); Hyaline Casts,Urine None Seen per lpf (None-Few); Squamous Epithelial Cell,Urine Many per lpf (None-Few); WBC,Urine TNTC per hpf (0-3)
[2018-06-04 12:31] LABS: Clarity,Urine Hazy (Clear)
[2018-06-04 12:50] LABS: Albumin 3.8 g/dL (3.5-5.7); Albumin/Globulin Ratio 1.4 (1.1-2.2); Bilirubin,Direct 0.3 mg/dL (0.0-0.2); Bilirubin,Indirect 0.6 mg/dL (0.0-1.2); Bilirubin,Total 0.9 mg/dL (0.3-1.0); Globulin 2.8 g/dL (2.4-3.5); Potassium 3.8 mEq/L (3.5-5.1); Total Protein 6.6 g/dL (6.4-8.9)
[2018-06-04] MEDS ORDERED: cefTRIAXone 1,000 MG in Water for inj. (sterile) 20 ML 10 ML IVP ONE (13:45)
--- NOTE | 2018-06-04 15:50 | Internal Med History&Physical ---
Date of Encounter: 06/04/18 Time of Encounter: 15:43 Internal Medicine - H&P: HPI Chief complaint: fall Admitted From: Home Plans for Post Hospital Care: Home History of present illness: Ms. Garibay is a 72 year old female arthritis, HTN, HLD, diabetes, CAD, diastolic CHF, afib on Coumadin, former smoker, CKD stage III. Pt denies history of CT, or recent chest pain. and daughter at bedside. Family reports that pt has been SOB for approximately 3 weeks and did not seek medical attention. Pt states she got out of bed on her way to the kitchen and pt states she fell. Pt states she fell back on her left hip. Pt's called EMS and she was brought into the ED for evaluation. Pt states she felt as though her glucose must have been low. Glucose was 29 and 23 in ED Daughter states that pt has been progressively SOB. Pt denies dysuria, frequency, and urgency. In ED EKG shows afib WBC 9.6, hgb 10.3, hct 35.4, plt 175. PT 23.0, INR 2.0. Na 142, K 3.8, BUN 28, Cr 1.52. Urine analysis with large leukocyte, TNTC WBC, many bacteria. Chest x ray XR/XR chest 1V portable IMPRESSION: No acute findings. Past Med Surg Social Fam HX - Past Medical History Medical history: atrial fibrillation, diabetes, hyperlipidemia, hypertension Additional medical history: anemia Psychiatric history: no psych history - Past Surgical History Surgical History: appendectomy, cholecystectomy, hysterectomy, knee replacement, other Additional surgical history: bilateral knee replacements, bilateral carpal tunnel release - Social History Smoking Status: Former smoker Smokeless Tobacco Status: No Alcohol use: none Drug use: none - Family History Mother Living Status: Hx Family Cardiac Disorders: Yes (heart failure) Hx Family Endocrine Disorder: Yes (dm) Internal Medicine - H&P: Meds RX: Aspirin 81 mg PO QPM 12/31/14 [History] RX: Furosemide [Lasix] 80 mg PO BID 12/31/14 [History] RX: Insulin Glargine,Hum.rec.anlog [Lantus Solostar] 60 unit SQ BID 12/31/14 [History] RX: Amitriptyline [Elavil] 25 mg PO HS 01/26/18 [History] RX: Metoprolol Succinate 200 mg PO DAILY 01/26/18 [History] RX: OxyCODONE/APAP 5/325 [Percocet 5/325 MG] 1 - 2 tab PO Q6HR PRN 01/26/18 [History] RX: Quinapril HCl [Accupril] 10 mg PO DAILY 01/26/18 [History] RX: Simvastatin [Zocor] 40 mg PO HS 01/26/18 [History] RX: Vitamin B Complex [B Complex] 1 tab PO DAILY 01/26/18 [History] RX: Warfarin [Coumadin] 1 mg PO SUTUTHSA 01/27/18 [History] RX: Warfarin [Coumadin] 2 mg PO MOWEFR 01/27/18 [History] Allergy/AdvReac Type Severity Reaction Status Date / Time bacitracin Allergy Rash Verified 06/04/18 10:38 [From Neosporin ([id number])] Neomycin Allergy Rash Verified 06/04/18 10:38 [From Neosporin ([id number])] polymyxin B Allergy Rash Verified 06/04/18 10:38 [From Neosporin ([id number])] All Systems PM: A 10-system review of systems was performed and is negative for pertinent findings except as documented above in the HPI. - Constitutional Vitals: Temp Pulse Resp BP Pulse Ox 97.9 F 84 20 135/78 97 06/04/18 10:30 06/04/18 12:00 06/04/18 12:00 06/04/18 12:00 06/04/18 12:29 General appearance: Present: A&O X 3, no acute distress Exam: . - Head Head exam: Present: atraumatic, normocephalic - Eye Eye exam: Present: PERRL, conjuntiva pink, sclera anicteric Pupils: Present: PERRL - Neck Neck exam general surgery: Present: supple, trachea midline. Absent: lymphadeno courtney - Respiratory Respiratory exam: Present: CTAB. Absent: accessory muscle use, rales, rhonchi, wheezes - Cardiovascular Cardiovascular exam: Present: RRR, +S1, +S2. Absent: diastolic murmur, gallop, rubs, systolic murmur - GI/Abdominal GI/Abdominal exam: Present: normal bowel sounds, soft, no peritoneal signs. Absent: distended, tenderness - Extremities Exam Extremities exam: Present: warm, radial pulses palpable and symmetrical. Ab sent: calf tenderness, cyanotic, pedal edema Additional comments: Left hihp externally rotated and painful with increased ROM - Neurological Exam Neurological exam: Present: CN II-XII intact, oriented X3, no focal deficits. Absent: pronater drift, facial droop, speech deficit - Skin Skin exam: Present: dry, intact Internal Med - H&P Results - Labs CBC & Chem 7: 06/05/18 15:35 06/05/18 15:35 Labs: Short CBC 06/04/18 Range/Units 10:53 WBC 9.6 (4.3-11.1) K/mcL Hgb 10.3 L (11.5-15.4) g/dL Hct 35.4 (35.3-44.9) % Plt Count 175 (140-400) K/mcL Neutrophils # 7.1 (1.6-8.9) K/mcL BMP 06/04/18 06/04/18 10:53 12:20 Sodium Cancelled 142 Potassium Cancelled 3.8 Chloride Cancelled 105 Carbon Dioxide Cancelled 30 H BUN Cancelled 28 H Creatinine Cancelled 1.52 H Glucose Cancelled 79 Calcium Cancelled 9.0 Cardiac Enzymes 06/04/18 Range/Units 10:53 Troponin I < 0.03 (< 0.04) ng/mL Liver Function 06/04/18 06/04/18 Range/Units 10:53 12:20 Total Bilirubin Cancelled 0.9 Direct Bilirubin Cancelled 0.3 H AST Cancelled 34 ALT Cancelled 26 Alkaline Phosphatase Cancelled 227 H Albumin Cancelled 3.8 Urine 06/04/18 Range/Units 12:12 Urine Color Yellow (Yellow) Urine Clarity Hazy A (Clear) Urine pH 6.5 (5.0-8.0) pH Units Ur Specific [place] 1.013 (1.010-1.025) Urine Protein Negative (Neg-Trace) mg/dL Urine Glucose (UA) Normal (Normal) mg/dL - Impressions ITS Impressions Cervical Spine CT 06/04/18 10:31 IMPRESSION: 1. No acute intracranial abnormality. 2. Mild increased pituitary size without sellar erosion or a mass effect. This has slightly progressed since the prior 2016 exam. If clinically indicated further evaluation with MRI of the brain pituitary protocol could be performed. 3. Normal cervical spine alignment with multilevel degenerative changes. No acute fracture. 4. 1.9 cm complex cystic lesion of the right thyroid lobe, see recommendations. RECOMMENDATIONS: Managing Incidental Thyroid Nodule Detected at CT or MRI or US 1. Further evaluation by thyroid Ultrasound recommended for these incidental nodules: Patient Age 35 years or more - Nodule 1.5 cm in size or greater Note: These recommendations do not apply to pts. w/ increased risk for thyroid cancer or pts. with symptomatic thyroid disease. Recommendations for f/u of Incidental Thyroid Nodules (ITN) found on CT, MR, NM and Extrathyroidal US are based upon the ACR white paper and Dupree 3-tiered system for managing ITNs: J Am Malcolm Radiol. 2015 Jun;12(2): 143-50 D/ / 06/04/2018 12:55:06 Bienvenido Styles MD / vero Interpreting Provider: Bienvenido Styles MD Chest X-Ray 06/04/18 10:31 IMPRESSION: No acute findings. D/ / Adrian Lake MD / Adrian Lake MD Interpreting Provider: Adrian Lake MD Head CT 06/04/18 10:31 IMPRESSION: 1. No acute intracranial abnormality. 2. Mild increased pituitary size without sellar erosion or a mass effect. This has slightly progressed since the prior 2016 exam. If clinically indicated further evaluation with MRI of the brain pituitary protocol could be performed. 3. Normal cervical spine alignment with multilevel degenerative changes. No acute fracture. 4. 1.9 cm complex cystic lesion of the right thyroid lobe, see recommendations. RECOMMENDATIONS: Managing Incidental Thyroid Nodule Detected at CT or MRI or US 1. Further evaluation by thyroid Ultrasound recommended for these incidental nodules: Patient Age 35 years or more - Nodule 1.5 cm in size or greater Note: These recommendations do not apply to pts. w/ increased risk for thyroid cancer or pts. with symptomatic thyroid disease. Recommendations for f/u of Incidental Thyroid Nodules (ITN) found on CT, MR, NM and Extrathyroidal US are based upon the ACR white paper and Dupree 3-tiered system for managing ITNs: J Am Malcolm Radiol. 2015 Jun;12(2): 143-50 D/ / 06/04/2018 12:55:06 Bienvenido Styles MD / vero Interpreting Provider: Bienvenido Styles MD Pelvis X-Ray 06/04/18 10:31 IMPRESSION: Mildly displaced intertrochanteric fracture of the left femur. D/ / Howie West MD / Howie West MD Interpreting Provider: Howie West MD Foot X-Ray 06/04/18 13:30 IMPRESSION: 1. Normal left hip alignment. Acute nondisplaced left intertrochanteric fracture. 2. The left tibia/fibula demonstrates no acute fracture. Normal knee and ankle alignment. 3. The left foot demonstrates no acute fracture. D/ / 06/04/2018 15:32:48 Bienvenido Styles MD / vero Interpreting Provider: Bienvenido Styles MD Hip X-Ray 06/04/18 13:30 IMPRESSION: 1. Normal left hip alignment. Acute nondisplaced left intertrochanteric fracture. 2. The left tibia/fibula demonstrates no acute fracture. Normal knee and ankle alignment. 3. The left foot demonstrates no acute fracture. D/ / 06/04/2018 15:32:48 Bienvenido Styles MD / vero Interpreting Provider: Bienvenido Styles MD Tibia/Fibula X-Ray 06/04/18 13:30 IMPRESSION: 1. Normal left hip alignment. Acute nondisplaced left intertrochanteric fracture. 2. The left tibia/fibula demonstrates no acute fracture. Normal knee and ankle alignment. 3. The left foot demonstrates no acute fracture. D/ / 06/04/2018 15:32:48 Bienvenido Styles MD / vero Interpreting Provider: Bienvenido Styles MD - Assessment and plan (1) Closed intertrochanteric fracture of left hip Status: Acute Assessment and plan: Orthopedic consulted to see. Possible surgery in am. Ordering PRN pain control. Pre-op eval Pt with history of HTN, DM-II, obesity. Pt denies history of CAD or CT, and denies recent chest pain. Pt states she ambulates with walker and sometimes a cane. She walks up about 3 flights of steps at home. She does report LOMBARDI and is a former smoker. Recommend neb treatment prior to surgery. She posses low to moderate risk for intermediate risk procedure. Echo done 01/2018 reviewed, showed EF 60% and pulmonary HTN but all wall segments showed normal motion. Qualifiers: Encounter type: initial encounter Fracture alignment: displaced Qualified Code(s): S72.142A - Displaced intertrochanteric fracture of left femur, initial encounter for closed fracture (2) Dyspnea on exertion Status: Acute Assessment and plan: Pt states she quit smoking 1984. She smoked 1-2PPD. She denies prior diagnosis of COPD she is aware of. She denies chest pain or palpitations and she states she is not on home oxygen. states she has been progressively SOB passed 3 weeks. She denies LE edema of increased abdominal girth/ascites. Afib rate controlled. Chest x ray negative. Will give Xopenex and reasses in am. Echo does shows moderate pulmonary HTN. She denies hx of sleep apnea but will likely benefit from out pt PFT and sleep study at discharge. Oxygen PRN Echo 01/27/2018 EV/EV echocardiogram Impressions: LVEF 55%. Normal LV chamber size, wall thickness and function. Mildly dilated right ventricle. Mild right ventricular hypokinesis. Mildly dilated left atrium. Mild-moderate pulmonic regurgitation. Moderate pulmonary hypertension. Estimated RA pressure is 10 mmHg. (3) UTI (urinary tract infection) Status: Acute Assessment and plan: Will place on Rocephin for UTI for now. Qualifiers: Urinary tract infection type: site unspecified Hematuria presence: without hematuria Qualified Code(s): N39.0 - Urinary tract infection, site not specified (4) Diastolic heart failure Status: Acute Assessment and plan: fluid status needs to be monitored closely due to hx of CHF. Does not appear to be in acute exacerbation at this time. Med rec pending review. Previously on Lasix 80 mg PO BID. Qualifiers: Heart failure chronicity: chronic Qualified Code(s): I50.32 - Chronic diastolic (congestive) heart failure (5) A-fib Status: Chronic Assessment and plan: On ASA and Warfarin. Holding Warfarin for now due to surgery in am. INR 2.0. Qualifiers: Atrial fibrillation type: paroxysmal Qualified Code(s): I48.0 - Paroxysmal atrial fibrillation (6) CKD (chronic kidney disease) stage 3, GFR 30-59 ml/min Status: Chronic Assessment and plan: Will monitor renal function closely for now. (7) Diabetes mellitus Status: Chronic Assessment and plan: Pt states she is on metformin and insulin. Will hold her Metformin for now and keep on insulin. Pt had hypolglycemic episodes x 2 at home which may have contributed to her fall. Placing on Levemir and SSI and will monitor glucose. 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 - Time Spent With Patient Total time spent is greater than 50% in coordination of care (as documented) at patient's floor/unit and/or counseling patient: 25 - 35 minutes
--- NOTE | 2018-06-04 16:20 | Orthopedic Consult Note ---
Date of Encounter: 06/04/18 Time of Encounter: 16:20 Assessment and Plan (1) Closed intertrochanteric fracture of left hip Current Visit: Yes Status: Acute The diagnosis and treatment options were discussed with the patient and her family. She has displaced fracture of the left hip intertrochanteric region. To allow for early ambulation and pain control surgical treatment was recommended. The patient and her family has elected to proceed with left hip cephalomedullary nail at this time. The risks and benefits of the procedure were fully explained in detail, including but not limited to the risk of infection, neurovascular injury, continued pain or stiffness, failure of surgery, reinjury, or need for additional surgery, DVT, PE, general risks of anesthesia and loss of limb or life. No guarantees were given or implied and all questions were answered. The patient understands all the risks and does wish to proceed with written consent. Surgery will be planned for tomorrow Qualifiers: Encounter type: initial encounter Fracture alignment: displaced Qualified Code(s): S72.142A - Displaced intertrochanteric fracture of left femur, initial encounter for closed fracture History of Present Illness HPI: Ms. Garibay is a 72 year old female who sustained a mechanical fall onto her left side today She presented with left hip pain and deformity. Imaging studies showed a displaced left intertrochanteric fracture and so she was admitted to our facility for definitive management. Denies prodromal symptoms prior to the fall. No chest pain or shortness of breath. No blacking out. She does typically ambulate with a walker or cane although was not using at the time. No other acute extremity injury other than the left hip. Past Med Surg Social Fam HX - Past Medical History Medical history: atrial fibrillation, diabetes, hyperlipidemia, hypertension Additional medical history: anemia Psychiatric history: no psych history - Past Surgical History Surgical History: appendectomy, cholecystectomy, hysterectomy, knee replacement, other Additional surgical history: bilateral knee replacements, bilateral carpal tunnel release - Social History Smoking Status: Former smoker Smokeless Tobacco Status: No Alcohol use: none Drug use: none - Family History Mother Living Status: Hx Family Cardiac Disorders: Yes (heart failure) Hx Family Endocrine Disorder: Yes (dm) Medications and Allergies Aspirin 81 mg PO QPM 12/31/14 [History] Furosemide [Lasix] 80 mg PO BID 12/31/14 [History] Insulin Glargine,Hum.rec.anlog [Lantus Solostar] 60 unit SQ BID 12/31/14 [History] Amitriptyline [Elavil] 25 mg PO HS 01/26/18 [History] Metoprolol Succinate 200 mg PO DAILY 01/26/18 [History] OxyCODONE/APAP 5/325 [Percocet 5/325 MG] 1 - 2 tab PO Q6HR PRN 01/26/18 [History] Quinapril HCl [Accupril] 10 mg PO DAILY 01/26/18 [History] Simvastatin [Zocor] 40 mg PO HS 01/26/18 [History] Vitamin B Complex [B Complex] 1 tab PO DAILY 01/26/18 [History] Warfarin [Coumadin] 1 mg PO SUTUTHSA 01/27/18 [History] Warfarin [Coumadin] 2 mg PO MOWEFR 01/27/18 [History] Allergy/AdvReac Type Severity Reaction Status Date / Time bacitracin Allergy Rash Verified 06/04/18 10:38 [From Neosporin ([id number])] Neomycin Allergy Rash Verified 06/04/18 10:38 [From Neosporin ([id number])] polymyxin B Allergy Rash Verified 06/04/18 10:38 [From Neosporin ([id number])] All Systems Reviewed: The remainder of the systems were reviewed and are negative except as noted in the HPI Physical Exam - Constitutional Vitals: Temp Pulse Resp BP Pulse Ox 97.9 F 84 20 135/78 97 06/04/18 10:30 06/04/18 12:00 06/04/18 12:00 06/04/18 12:00 06/04/18 12:29 Exam: Consult Exam: Constitutional -Vitals reviewed -The patient is well developed and well nourished. Psychiatric -The patient is fully alert and oriented x 3. Respiratory: -Respiratory effort normal Abdomen: -Soft abdomen -Non tender -Non distended: Left upper extremity: -No deformities. The overlying skin is intact. No obvious signs of acute trauma. -No tenderness to palpation throughout. -No significant pain with passive motion of the shoulder, elbow, wrist, and fingers within the limits of the bed. -Able to make an "OK" sign, cross the index and long fingers, and extend the thumb. -Sensation grossly intact to light touch throughout the median, radial, and ulnar distributions. -Radial pulse is present; Fingers have good capillary refill. Right upper extremity: -No deformities. The overlying skin is intact. No obvious signs of acute trauma. -No tenderness to palpation throughout. -No significant pain with passive motion of the shoulder, elbow, wrist, and fingers within the limits of the bed. -Able to make an "OK" sign, cross the index and long fingers, and extend the thumb. -Sensation grossly intact to light touch throughout the median, radial, and ulnar distributions. -Radial pulse is present; Fingers have good capillary refill. Right lower extremity: -No deformities. The overlying skin is intact. No obvious signs of acute trauma. -No tenderness to palpation throughout. -No pain with passive motion of the hip, knee, ankle, and toes within the limits of the bed. -No pain with axial loading of the thigh. -Able to dorsiflex and plantarflex the ankle and toes. -Sensation is grossly intact to light touch throughout the sural, saphenous, superficial peroneal, and deep peroneal distributions. -Toes have good capillary refill. Left lower extremity: -Short and externally rotated. I did not range the hip due to the known fracture. -No tenderness to palpation over the knee, distal femur, tibia, ankle or foot. -Able to dorsiflex and plantarflex the ankle and toes. -Sensation is grossly intact to light touch throughout the sural, saphenous, superficial peroneal, and deep peroneal distributions. -Toes have good capillary refill. Results - Labs Result Diagrams: 06/04/18 10:53 06/04/18 12:20 Labs: Abnormal lab results RBC 3.75 M/mcL (3.82-4.97) L 06/04/18 10:53 Hgb 10.3 g/dL (11.5-15.4) L 06/04/18 10:53 MCH 27.5 pg (28.0-33.3) L 06/04/18 10:53 MCHC 29.1 g/dL (31.6-35.5) L 06/04/18 10:53 RDW 20.7 % (11.5-14.5) H 06/04/18 10:53 Nucleated RBCs/100 WBC 0.2 /100 WBC (0) H 06/04/18 10:53 Carbon Dioxide 30 mEq/L (23-29) H 06/04/18 12:20 BUN 28 mg/dL (8-23) H 06/04/18 12:20 Creatinine 1.52 mg/dL (0.60-1.20) H 06/04/18 12:20 Est GFR ( Amer) 41 (> 60) L 06/04/18 12:20 Est GFR (Non-Af Amer) 33 (> 60) L 06/04/18 12:20 Direct Bilirubin 0.3 mg/dL (0.0-0.2) H 06/04/18 12:20 Alkaline Phosphatase 227 Units/L (34-104) H 06/04/18 12:20 Urine Clarity Hazy (Clear) A 06/04/18 12:12 Urine Blood Small (Negative) H 06/04/18 12:12 Ur Leukocyte Esterase Large (Negative) H 06/04/18 12:12 Urine Microscopic RBC 5-15 per hpf (0-3) H 06/04/18 12:12 Urine Microscopic WBC TNTC per hpf (0-3) H 06/04/18 12:12 Ur Squamous Epith Cells Many per lpf (None-Few) H 06/04/18 12:12 Urine Bacteria Many per hpf (None-Few) H 06/04/18 12:12 Ur Culture Indicated? NO. (NO) A 06/04/18 12:12 H & H 06/04/18 Range/Units 10:53 Hgb 10.3 L (11.5-15.4) g/dL Hct 35.4 (35.3-44.9) % All other labs normal. - Diagnostic results Hip x-ray: report reviewed, image reviewed (Left hip intertrochanteric fracture) Consult Discharge Plan - Plan Referrals: Gabe Montano Jr, MD [Primary Care Provider] -
[2018-06-04] MEDS ORDERED: Naloxone 0.4 MG/ML INJ IVP PRN (16:59)
[2018-06-04] MEDS ORDERED: Acetaminophen 325 MG TABLET PO PRN (16:59)
[2018-06-04] MEDS ORDERED: Ondansetron 4 MG/2 ML VIAL IVP PRN (16:59)
[2018-06-04] MEDS ORDERED: Ipratropium/Albuterol Neb 3 ML IH ONE (17:46)
[2018-06-04] MEDS ORDERED: D5% in Water 1,000 ML IVC PRN (17:55)
[2018-06-04] MEDS ORDERED: *HR* Dextrose 50 % in Water (Syg) 50 ML SYRINGE IVP PRN (17:55)
[2018-06-04] MEDS ORDERED: Dextrose Gel 15 GM/37.5 ML TUBE PO PRN ×2 (17:55)
[2018-06-04] MEDS: Metoprolol 100 MG TABLET PO SCH (20:32)
[2018-06-04] MEDS: *HR* HYDROcodone/Acet 5/325 mg TABLET PO PRN (20:32)
[2018-06-04] MEDS: Levalbuterol Neb 0.63 MG/3 ML IH SCH ×2 (20:46→21:55)
[2018-06-04] MEDS ORDERED: Insulin DETEMIR 100 UNIT/ML X5UNITS SQ SCH (21:00)
[2018-06-05] MEDS: *HR* HYDROcodone/Acet 5/325 mg TABLET PO PRN (01:54)
[2018-06-05 03:09] LABS: Basophils % 0.3 %; Eosinophils # 0.1 K/mcL (0.0-0.6); Eosinophils % 0.8 %; Hematocrit 31.6 % (35.3-44.9); Hemoglobin 9.3 g/dL (11.5-15.4); Immature Granulocytes % 0.3 % (0-4); Lymphocytes # 1.2 K/mcL (0.6-4.6); Lymphocytes % 10.3 %; Mean Corpuscular HGB Conc 29.4 g/dL (31.6-35.5); Mean Corpuscular Hemoglobin 27.1 pg (28.0-33.3); Mean Corpuscular Volume 92.1 fL (83.0-100.0); Mean Platelet Volume 11.3 fL (9.4-12.4); Monocytes # 0.8 K/mcL (0.0-1.3); Monocytes % 6.6 %; Neutrophils # 9.6 K/mcL (1.6-8.9); Platelet Count 131 K/mcL (140-400); Red Blood Count 3.43 M/mcL (3.82-4.97); Red Cell Distribution Width 20.6 % (11.5-14.5); Segmented Neutrophils % 81.7 %
[2018-06-05 03:18] LABS: INR 2.4; Prothrombin Time 26.8 Seconds (9.4-12.1)
[2018-06-05 03:28] LABS: Albumin 3.6 g/dL (3.5-5.7); Calcium 9.1 mg/dL (8.6-10.3); Phosphorous 4.4 mg/dL (2.7-4.5)
[2018-06-05 03:30] LABS: Calcium 9.1 mg/dL (8.6-10.3)
[2018-06-05] MEDS: Levalbuterol Neb 0.63 MG/3 ML IH SCH ×2 (03:45→09:50)
[2018-06-05] MEDS ORDERED: Insulin LISPRO 300 UNITS/3 ML VIAL SQ SCH ×2 (07:30→16:30)
[2018-06-05] MEDS ORDERED: 0.9 % Sodium Chloride 250 ML IVC SCH (07:45)
--- NOTE | 2018-06-05 07:54 | Anesthesia Evaluation PreOp ---
Date of Encounter: 06/05/18 Time of Encounter: 07:52 - Past History Planned Operation: L hip TFN Cardiac History: HTN, Hyperlipidemia, Arrhythmia (afib), Other (02/07/18 Impr ession: Perfusion imaging was negative for ischemia or infarct. Pharmacologic stress ECG is negative for ischemia at level of heart rate achieved. No appreciable change from baseline ECG. Gated EF > 70%.) Pulmonary History: Denies Any Significant HX FLAMER AFTER LASTING History: Denies Any Significant HX Other Medical History: Other (anemia) Anesthesia History: No Prior Anesthetic Complications, Past Anesthesia (appy, parul, hysterectomy) Alcohol Use: none Drug use: none Medications and Allergies Aspirin 81 mg PO QPM 12/31/14 [History] Furosemide [Lasix] 80 mg PO BID 12/31/14 [History] Insulin Glargine,Hum.rec.anlog [Lantus Solostar] 60 unit SQ BID 12/31/14 [History] Amitriptyline [Elavil] 25 mg PO HS 01/26/18 [History] Metoprolol Succinate 200 mg PO DAILY 01/26/18 [History] OxyCODONE/APAP 5/325 [Percocet 5/325 MG] 1 - 2 tab PO Q6HR PRN 01/26/18 [History] Quinapril HCl [Accupril] 10 mg PO DAILY 01/26/18 [History] Simvastatin [Zocor] 40 mg PO HS 01/26/18 [History] Vitamin B Complex [B Complex] 1 tab PO DAILY 01/26/18 [History] Warfarin [Coumadin] 1 mg PO SUTUTHSA 01/27/18 [History] Warfarin [Coumadin] 2 mg PO MOWEFR 01/27/18 [History] Allergy/AdvReac Type Severity Reaction Status Date / Time bacitracin Allergy Rash Verified 06/04/18 10:38 [From Neosporin ([id number])] Neomycin Allergy Rash Verified 06/04/18 10:38 [From Neosporin ([id number])] polymyxin B Allergy Rash Verified 06/04/18 10:38 [From Neosporin ([id number])] - Meds/Allergy Pre-op Review Medications Reviewed: Yes Allergies Reviewed: Yes Beta Blockers on Current Med List: Yes If Beta Blockers taken, Date/Time (Last Dose taken): 06/05/18 826 Anesthesia Results - Labs 06/05/18 02:53 06/05/18 02:53 Laboratory Tests 06/05/18 02:53 PT 26.8 H INR 2.4 - Imaging EKG: report reviewed (Atrial fibrillation Low voltage, precordial leads Borderline repolarization abnormality Electronically Signed On 01-29-2018 12:21:26 EDT by Randi Benjamin) Anesthesia Exam Vital Signs/O2 Sat, Most Current Temp Pulse Resp BP Pulse Ox 98.0 F 93 16 122/74 93 06/05/18 06:10 06/05/18 06:10 06/05/18 06:10 06/05/18 06:10 06/05/18 06:10 Height: 1.63m Weight: 90kg NPO (# of Hours): >8 - HEENT Pupil (Motor): Pupils equal, EOMI Mallampati: II Teeth: Edentulous Oral Opening: Greater than 3 - FLAMER AFTER LASTING LOC: Oriented FLAMER AFTER LASTING Motor: Normal RUE, Normal LUE, Normal RLE, Normal LLE, Normal Face FLAMER AFTER LASTING Sensory: Normal: RUE, LUE, RLE, LLE, Face - Cardiac Rhythm: Irregular - Pulmonary Breath Sounds: bilateral Clear Respiratory Effort: Symmetrical Anesthesia Assess/Plan ASA Score: 3 Level of consciousness: Cooperative Anesthetic Plan: General Monitoring Plan: Standard Monitors Recovery Plan: PACU
[2018-06-05] MEDS: Metoprolol 100 MG TABLET PO SCH (08:26)
--- NOTE | 2018-06-05 08:26 | Internal Med Progress Note ---
Hospitalist Progress Note - Encounter Date of Encounter: 06/05/18 Time of Encounter: 08:26 - Exam Vitals: Temp Pulse Resp BP Pulse Ox 98.0 F 93 16 122/74 93 06/05/18 06:10 06/05/18 06:10 06/05/18 06:10 06/05/18 06:10 06/05/18 06:10 - Assessment and Plan (1) Closed intertrochanteric fracture of left hip Current Visit: Yes Status: Acute Assessment and Plan: Orthopedic consulted to see. Possible surgery in am. Ordering PRN pain control. Pre-op eval Pt with history of HTN, DM-II, obesity, Pt states she ambulates with walker and sometimes a cane. She only walks up about 3 flights of steps at home. She does get dyspneic with exertion. Recommend neb treatment prior to surgery. She posses low to moderate risk for intermediate risk procedure. Echo done 01/2018 reviewed, showed EF 60% and pulmonary HTN but all wall segments showed normal motion. Pt in surgery will reassess post-op (2) Dyspnea on exertion Current Visit: Yes Status: Acute (3) UTI (urinary tract infection) Current Visit: Yes Status: Acute (4) Diastolic heart failure Current Visit: No Status: Acute (5) A-fib Current Visit: No Status: Chronic (6) CKD (chronic kidney disease) stage 3, GFR 30-59 ml/min Current Visit: No Status: Chronic (7) Diabetes mellitus Current Visit: No Status: Chronic (8) Essential hypertension Current Visit: No Status: Chronic - Time Spent with Patient Total time spent is greater than 50% in coordination of care (as documented) at patient's floor/unit and/or counseling patient: Internal Medicine: Result - Labs CBC & Chem 7: 06/05/18 15:35 06/05/18 15:35 Labs: Short CBC 06/04/18 06/05/18 Range/Units 10:53 02:53 WBC 9.6 11.8 H (4.3-11.1) K/mcL Hgb 10.3 L 9.3 L (11.5-15.4) g/dL Hct 35.4 31.6 L (35.3-44.9) % Plt Count 175 131 L (140-400) K/mcL Neutrophils # 7.1 9.6 H (1.6-8.9) K/mcL BMP 06/04/18 06/04/18 06/05/18 10:53 12:20 02:53 Sodium Cancelled 142 141 Potassium Cancelled 3.8 4.0 Chloride Cancelled 105 103 Carbon Dioxide Cancelled 30 H 27 BUN Cancelled 28 H 28 H Creatinine Cancelled 1.52 H 1.49 H Glucose Cancelled 79 130 H Calcium Cancelled 9.0 9.1 06/05/18 02:53 Sodium 139 Potassium 4.0 Chloride 103 Carbon Dioxide 27 BUN 28 H Creatinine 1.48 H Glucose 131 H Calcium 9.1 Cardiac Enzymes 06/04/18 Range/Units 10:53 Troponin I < 0.03 (< 0.04) ng/mL Liver Function 06/04/18 06/04/18 06/05/18 Range/Units 10:53 12:20 02:53 Total Bilirubin Cancelled 0.9 Direct Bilirubin Cancelled 0.3 H AST Cancelled 34 ALT Cancelled 26 Alkaline Phosphatase Cancelled 227 H Albumin Cancelled 3.8 3.6 Urine 06/04/18 Range/Units 12:12 Urine Color Yellow (Yellow) Urine Clarity Hazy A (Clear) Urine pH 6.5 (5.0-8.0) pH Units Ur Specific Lenora 1.013 (1.010-1.025) Urine Protein Negative (Neg-Trace) mg/dL Urine Glucose (UA) Normal (Normal) mg/dL - ABG Interpretation ABG results: PT/INR, D-dimer PT 26.8 Seconds (9.4-12.1) H 06/05/18 02:53 - Impressions Impressions Cervical Spine CT 06/04/18 10:31 IMPRESSION: 1. No acute intracranial abnormality. 2. Mild increased pituitary size without sellar erosion or a mass effect. This has slightly progressed since the prior 2016 exam. If clinically indicated further evaluation with MRI of the brain pituitary protocol could be performed. 3. Normal cervical spine alignment with multilevel degenerative changes. No acute fracture. 4. 1.9 cm complex cystic lesion of the right thyroid lobe, see recommendations. RECOMMENDATIONS: Managing Incidental Thyroid Nodule Detected at CT or MRI or US 1. Further evaluation by thyroid Ultrasound recommended for these incidental nodules: Patient Age 35 years or more - Nodule 1.5 cm in size or greater Note: These recommendations do not apply to pts. w/ increased risk for thyroid cancer or pts. with symptomatic thyroid disease. Recommendations for f/u of Incidental Thyroid Nodules (ITN) found on CT, MR, NM and Extrathyroidal US are based upon the ACR white paper and Dupree 3-tiered system for managing ITNs: J Am Malcolm Radiol. 2015 Jun;12(2): 143-50 D/ / 06/04/2018 12:55:06 Bienvenido Styles MD / vero Interpreting Provider: Bienvenido Styles MD Chest X-Ray 06/04/18 10:31 IMPRESSION: No acute findings. D/ / Adrian Lake MD / Adrian Lake MD Interpreting Provider: Adrian Lake MD Head CT 06/04/18 10:31 IMPRESSION: 1. No acute intracranial abnormality. 2. Mild increased pituitary size without sellar erosion or a mass effect. This has slightly progressed since the prior 2016 exam. If clinically indicated further evaluation with MRI of the brain pituitary protocol could be performed. 3. Normal cervical spine alignment with multilevel degenerative changes. No acute fracture. 4. 1.9 cm complex cystic lesion of the right thyroid lobe, see recommendations. RECOMMENDATIONS: Managing Incidental Thyroid Nodule Detected at CT or MRI or US 1. Further evaluation by thyroid Ultrasound recommended for these incidental nodules: Patient Age 35 years or more - Nodule 1.5 cm in size or greater Note: These recommendations do not apply to pts. w/ increased risk for thyroid cancer or pts. with symptomatic thyroid disease. Recommendations for f/u of Incidental Thyroid Nodules (ITN) found on CT, MR, NM and Extrathyroidal US are based upon the ACR white paper and Dupree 3-tiered system for managing ITNs: J Am Malcolm Radiol. 2015 Jun;12(2): 143-50 D/ / 06/04/2018 12:55:06 Bienvenido Styles MD / vero Interpreting Provider: Bienvenido Styles MD Pelvis X-Ray 06/04/18 10:31 IMPRESSION: Mildly displaced intertrochanteric fracture of the left femur. D/ / Howie West MD / Howie West MD Interpreting Provider: Howie West MD Foot X-Ray 06/04/18 13:30 IMPRESSION: 1. Normal left hip alignment. Acute nondisplaced left intertrochanteric fracture. 2. The left tibia/fibula demonstrates no acute fracture. Normal knee and ankle alignment. 3. The left foot demonstrates no acute fracture. D/ : / 06/04/2018 15:32:48 Bienvenido Styles MD / vero Interpreting Provider: Bienvenido Styles MD Hip X-Ray 06/04/18 13:30 IMPRESSION: 1. Normal left hip alignment. Acute nondisplaced left intertrochanteric fracture. 2. The left tibia/fibula demonstrates no acute fracture. Normal knee and ankle alignment. 3. The left foot demonstrates no acute fracture. D/ : / 06/04/2018 15:32:48 Bienvenido Styles MD / vero Interpreting Provider: Bienvenido Styles MD Tibia/Fibula X-Ray 06/04/18 13:30 IMPRESSION: 1. Normal left hip alignment. Acute nondisplaced left intertrochanteric fracture. 2. The left tibia/fibula demonstrates no acute fracture. Normal knee and ankle alignment. 3. The left foot demonstrates no acute fracture. D/ / 06/04/2018 15:32:48 Bienvenido Styles MD / vero Interpreting Provider: Bienvenido Styles MD Consult Discharge Plan - Plan Referrals: Gabe Montano Jr, MD [Primary Care Provider] - (1) Closed intertrochanteric fracture of left hip Qualifiers: Encounter type: initial encounter Fracture alignment: displaced Qualified Code(s): S72.142A - Displaced intertrochanteric fracture of left femur, initial encounter for closed fracture (3) UTI (urinary tract infection) Qualifiers: Urinary tract infection type: site unspecified Hematuria presence: without hematuria Qualified Code(s): N39.0 - Urinary tract infection, site not specified (4) Diastolic heart failure Qualifiers: Heart failure chronicity: chronic Qualified Code(s): I50.32 - Chronic diastolic (congestive) heart failure (5) A-fib Qualifiers: Atrial fibrillation type: paroxysmal Qualified Code(s): I48.0 - Paroxysmal atrial fibrillation (7) Diabetes mellitus Qualifiers: Diabetes mellitus type: type 2 Diabetes mellitus superintendent terminal insulin use: with fdc use Diabetes mellitus complication status: with kidney complications Diabetes mellitus complication detail: with chronic kidney disease Chronic kidney disease stage: stage 3 (moderate) Qualified Code(s): E11.22 - Type 2 diabetes mellitus with diabetic chronic kidney disease; N18.3 - Chronic kidney disease, stage 3 (moderate); 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
[2018-06-05] MEDS ORDERED: cefTRIAXone 1,000 MG in Water for inj. (sterile) 20 ML 10 ML IVP SCH (09:00)
[2018-06-05] MEDS ORDERED: Aspirin 81 MG TAB.CHEW PO SCH (09:00)
[2018-06-05] MEDS ORDERED: *HR* Meperidine 25 MG/ML SYRINGE IVP PRN (09:03)
[2018-06-05] MEDS ORDERED: *HR* OxyCODONE Immed Rel 5 MG TABLET PO PRN (09:03)
[2018-06-05] MEDS ORDERED: Ondansetron 4 MG/2 ML VIAL IVP ONE (09:03)
[2018-06-05] MEDS ORDERED: *HR* HYDROmorphone (PF) 1 MG/ML SYRINGE IVP PRN (09:03)
[2018-06-05] MEDS ORDERED: Ringers Solution, Lactated 1,000 ML IVC SCH (09:15)
[2018-06-05] MEDS ORDERED: Lidocaine -MPF 2% 2 ML VIAL ONE (09:50)
[2018-06-05] MEDS ORDERED: *HR* Succinylcholine 200 MG/10 ML VIAL IVP ONE ×2 (09:50→20:14)
[2018-06-05] MEDS ORDERED: *HR* FentaNYL (PF) 100 MCG/2 ML VIAL ONE (09:50)
[2018-06-05] MEDS ORDERED: *HR* Propofol 200 MG/20 ML VIAL IVP ONE (09:50)
[2018-06-05] MEDS ORDERED: Lidocaine -MPF 4% 5 ML AMPUL ONE (09:50)
[2018-06-05] MEDS ORDERED: Acetaminophen IV 1,000 MG/100 ML INFUS..BTL ONE (09:51)
[2018-06-05] MEDS ORDERED: KETAMINE HCL 50 MG/ML SYRINGE IV ONE (09:51)
[2018-06-05] MEDS ORDERED: ceFAZolin 2,000 MG in 0.9 % Sodium Chloride 100 ML IVP ONE (10:00)
[2018-06-05] MEDS ORDERED: Ondansetron 4 MG/2 ML VIAL ONE (11:10)
[2018-06-05] MEDS ORDERED: Dexamethasone 4 MG/ML VIAL ONE (11:10)
--- NOTE | 2018-06-05 12:10 | Orthopedic Operative Note ---
Date of procedure: 06/05/18 Procedure: Procedure: Left hip cephalomedullary nail Preoperative diagnosis: Left hip intertrochanteric fracture Postoperative diagnosis: Same Surgeon: Seven Coles MD Anesthesia: General EBL: 100 cc Complications: None Components used: Synthes TFNA 11 x 170 mm/130 degree nail, 100 mm helical blade, 5.0 x 34 mm locking screw Indications: This is an 72 yo F who sustained a mechanical fall onto her left side, causing her left hip pain and deformity. She was brought to the emergency department and imaging confirmed a left hip intertrochanteric fracture, she was then admitted to our facility for definitive management. After discussing the procedure at length, the patient elected for operative management with a cephalomedullary nail of the left hip. The risks and benefits the procedure were fully explained. Those risks included but are not limited to, infection, neurovascular injury, continued pain, arthritis, stiffness, further injury, need for further surgery, DVT, PE, loss of limb, and loss of life. The patient understood all these risks and wished to proceed. Informed consent was obtained. No guarantees were stated or implied. Operative report: The patient was assessed and cleared by the medical group prior to surgery. Patient was brought to the holding area. Left lower extremity was marked, the patient was taken to the operating room, general anesthetic was administered and she was transferred to the hospital bed. The patient's head, neck and airway were protected by anesthesia throughout the case. The patient was then transferred to the fracture table and placed in supine position with a well padded perineal post. All bony prominences were well-padded. Left leg was attached to traction device and the fracture bed. The right leg was then placed in a well leg munoz and positioned out of the way of fluoroscopy. We then utilized fracture table to reduce the fracture and obtained fluoroscopic images in AP and lateral planes confirming alignment. The left lower extremity was then prepped and draped in the normal sterile orthopedic fashion. Preoperative antibiotics were given prior to incision. A surgical time out protocol was then performed. We then made an incision just proximal to the greater trochanter. We dissected down through the IT band sharply. We were then able to palpate the greater trochanter and we placed a guidepin in the appropriate starting position on the greater trochanter. We advanced the guidepin into the proximal femur and then confirmed the position in both AP and lateral planes. After confirming acceptable pin placement at the tip of the greater trochanter, we advanced the pin to the level of the lesser trochanter. We then utilized an entry reamer over the pin to open up the canal. We then placed a size 11 mm 130 degree Synthes TFNA short nail over the guide pin. We manually advanced the nail to the appropriate depth taking care to avoid any further injury to the bone. When the nail was at the appropriate depth we used the outrigger to place a guidepin for the compression blade into the femoral head. We confirmed the location of the pin on both AP and lateral x-rays. We then overdrilled the pin and placed the 100 mm blade. We then locked the nail proximally and utilized the outrigger for compression across the fracture site. After confirming acceptable alignment of the fracture, we then used the outrigger to place a distal locking screw from lateral to medial. At this point we obtained final fluoroscopic images of the left hip and femur in both AP and lateral planes. We then thoroughly irrigated the wounds and closed the IT band with 0 Vicryl. Subcutaneous tissue was closed with 2-0 strata fix, skin was closed with 3-0 strata fix and then zip line. Sterile dressing was placed, the patient was woken by anesthesia and taken transferred to PACU in stable condition. Patient tolerated procedure well with no issues. Postop plan: Patient will be transferred back to the floor and will be weight- bearing as tolerated of left lower extremity with physical therapy postoperatively. DVT prophylaxis per the hospitalist group. Was there an family service assistant present: No Estimated blood loss (cc): 100
--- NOTE | 2018-06-05 12:27 | Anesthesia Evaluation Post Op ---
Date of Encounter: 06/05/18 Time of Encounter: 12:26 - Vital Signs Vital Signs: Vital Signs/O2 Sat, Most Current Temp Pulse Resp BP Pulse Ox 100.3 F H 86 20 103/72 95 06/05/18 12:20 06/05/18 12:20 06/05/18 12:20 06/05/18 12:20 06/05/18 12:20 - Lungs Lungs: Clear Ascult./Percussion - Airway Airway: Non-obstructed - Cardiovascular Regular Rate - Mental Status Mental Status: Alert & Oriented, Answers Appropriately - Pain Pain Scale: 0 Pain Scale used: Numeric (1 - 10) - Nausea Vomiting Nausea Vomiting: Not Present - Hydration Hydration: Tolerates oral liquids - Discharge PostOp Status: Transfer Patient to floor
[2018-06-05 12:32] LABS: Hematocrit 30.6 % (35.3-44.9); Hemoglobin 8.9 g/dL (11.5-15.4)
[2018-06-05] MEDS ORDERED: Dextrose Gel 15 GM/37.5 ML TUBE PO PRN ×2 (13:38)
[2018-06-05] MEDS ORDERED: Naloxone 0.4 MG/ML INJ IVP PRN ×2 (13:38)
[2018-06-05] MEDS ORDERED: Acetaminophen 325 MG TABLET PO PRN (13:38)
[2018-06-05] MEDS ORDERED: D5% in Water 1,000 ML IVC PRN (13:38)
[2018-06-05] MEDS ORDERED: *HR* Dextrose 50 % in Water (Syg) 50 ML SYRINGE IVP PRN (13:38)
[2018-06-05] MEDS ORDERED: Ondansetron 4 MG/2 ML VIAL IVP PRN (13:38)
[2018-06-05] MEDS ORDERED: *HR* HYDROcodone/Acet 5/325 mg TABLET PO PRN (13:38)
[2018-06-05 14:46] LABS: Basophils % 0.3 %; Immature Granulocytes % 1.1 % (0-4)
[2018-06-05 14:47] LABS: Basophils # 0.1 K/mcL (0.0-0.2); Eosinophils % 0.2 %; Hematocrit 33.8 % (35.3-44.9); Hemoglobin 9.5 g/dL (11.5-15.4); Lymphocytes # 1.5 K/mcL (0.6-4.6); Lymphocytes % 8.5 %; Mean Corpuscular HGB Conc 28.1 g/dL (31.6-35.5); Mean Corpuscular Hemoglobin 27.4 pg (28.0-33.3); Mean Corpuscular Volume 97.4 fL (83.0-100.0); Mean Platelet Volume 11.8 fL (9.4-12.4); Monocytes # 0.5 K/mcL (0.0-1.3); Monocytes % 3.1 %; Neutrophils # 14.9 K/mcL (1.6-8.9); Nucleated Red Blood Cells 0.2 /100 WBC (0); Platelet Count 152 K/mcL (140-400); Red Blood Count 3.47 M/mcL (3.82-4.97); Segmented Neutrophils % 86.8 %
[2018-06-05 14:52] LABS: Anisocytosis 1+ (Not Present); Hypochromasia Present (Not Present); Platelet Estimate Normal (Normal)
[2018-06-05 14:56] LABS: VBG HCO3 20 mEq/L (21-27); VBG PCO2 45 mmHg (41-51); VBG PH 7.27 pH Units (7.32-7.42); VBG PO2 203 mmHg (25-50)
[2018-06-05 15:10] LABS: BUN/Creatinine Ratio 17 (6-26); Blood Urea Nitrogen 30 mg/dL (8-23); Carbon Dioxide 17 mEq/L (23-29); Chloride 102 mEq/L (98-107); Glucose 154 mg/dL (70-105); Osmolality,Calculated 295 (280-300); Potassium 5.3 mEq/L (3.5-5.1); Sodium 138 mEq/L (136-145); Troponin I < 0.03 ng/mL (< 0.04); eGFR For Non-African Americans 27 (> 60)
[2018-06-05 15:24] LABS: ABG Base Excess -11 mEq/L (-2 to 3); ABG HCO3 15 mEq/L (21-27); ABG Oxygen Saturation 100 % (95-98); ABG PCO2 33 mmHg (35-45); ABG PH 7.26 pH Units (7.32-7.45); ABG PO2 215 mmHg (85-104); ABG TCO2 16 mEq/L (20-26); Blood Gas Modality VC; Blood Gas PEEP 5 cm H2O; Blood Gas Respiration Rate 12; Blood Gas VT 550 cc
[2018-06-05] MEDS ORDERED: Sodium Bicarbonate 150 MEQ in D5% in Water 1,000 ML IVC SCH (15:30)
[2018-06-05] MEDS ORDERED: Isovue-370 500 ML INFUS..BTL IV ONE (15:43)
[2018-06-05] MEDS ORDERED: Phenylephrine 10 MG in D5% in Water 250 ML IVC SCH (16:00)
[2018-06-05] MEDS ORDERED: Levalbuterol Neb 0.63 MG/3 ML IH SCH (16:00)
[2018-06-05] MEDS ORDERED: Norepinephrine 4 MG in D5% in Water 250 ML IVC SCH (16:00)
[2018-06-05 16:04] VITALS: BP 98/71
[2018-06-05 16:08] LABS: Basophils % 0.4 %; Eosinophils % 0.3 %; Monocytes % 3.5 %; Nucleated Red Blood Cells 0.2 /100 WBC (0)
[2018-06-05 16:09] LABS: Basophils # 0.1 K/mcL (0.0-0.2); Eosinophils # 0.1 K/mcL (0.0-0.6); Hemoglobin 8.5 g/dL (11.5-15.4); Immature Granulocytes % 4.5 % (0-4); Lymphocytes % 9.6 %; Mean Corpuscular HGB Conc 27.4 g/dL (31.6-35.5); Mean Corpuscular Hemoglobin 27.2 pg (28.0-33.3); Mean Platelet Volume 11.5 fL (9.4-12.4); Monocytes # 0.7 K/mcL (0.0-1.3); Platelet Count 167 K/mcL (140-400); Red Blood Count 3.13 M/mcL (3.82-4.97); Segmented Neutrophils % 81.7 %
--- NOTE | 2018-06-05 16:09 | Procedure Note ---
Date of procedure: 06/05/18 Pre-op diagnosis: arrest, hypotension Post-op diagnosis: same Procedure: Procedure Note: Central Venous Catheter Insertion Indication: Arrest, hypotension Attending Physician: Performed independently Fence Maker: Adrian Harrell DO Consent: Performed emergently Technique: A time out was preformed identifying the correct procedure, the correct location with the nursing staff. The right groin was prepped with 2% chlorhexidine and draped with a full length sterile sheet in the usual fashion. The right femoral vein was accessed under ultrasound guidance with an 18 gauge thin wall needle. A triple lumen was inserted via the seldinger technique. Blood was withdrawn from all lumens and flushed with normal saline. The catheter was sutured in place and a sterile dressing was applied over the site prior to removal of drapes. The patient tolerated the procedure well and there were no complications. EBL: 5 Complication: Initial attempt was performed emergently under less than sterile conditions. Successful on third attempt. Procedure: Endotracheal intubation Date: 06/05/18 Time: 1520 Fence Maker: Marvin Gil DO Indication: Arrest The patient was placed in supine position. All equipment was checked and operational before beginning the procedure. Sedation was obtained using etomidate, versed. Patient was paralyzed using succinylcholine. The patient was easily ventilated using an Ambu bag. There are laryngoscope using a Mac 3 blade was inserted into the oropharynx at which time a grade 1 view of the vocal cords was visualized. A 7.5French endotracheal tube was inserted and visualized going through the cords. The stylet was removed. Colorimetric change was visualized on the CO2 meter. Breath sounds were heard in both lung dudley. There were no breast breath sounds auscultated over the stomach. The endotracheal tube was placed at 21 cm at the lip line. Multiple Attending physicians were in attendance throughout the entirety of the procedures. A chest x-ray was ordered afterwards to assess for pneumothorax and placement of the endotracheal tube. The patient tolerated the procedure well without desaturation or hemodynamic compromise. Anesthesia: IV sedation Surgeon: Adrian Harrell Was there an legal executive assistant present: Yes Labor Mediator: Marvin Gil Estimated blood loss (cc): 5 Specimen: none Pathology: none sent Condition: critical Disposition: ICU
[2018-06-05 16:10] LABS: Hypochromasia Present (Not Present); Neutrophils # 16.7 K/mcL (1.6-8.9)
[2018-06-05 16:19] LABS: Albumin/Globulin Ratio 1.3 (1.1-2.2); Bilirubin,Total 1.6 mg/dL (0.3-1.0); Calcium 8.1 mg/dL (8.6-10.3); Globulin 2.3 g/dL (2.4-3.5); Potassium 3.9 mEq/L (3.5-5.1); Total Protein 5.3 g/dL (6.4-8.9)
[2018-06-05] MEDS ORDERED: 0.9 % Sodium Chloride 1,000 ML ONE (16:33)
--- NOTE | 2018-06-05 16:49 | Event Note ---
Date of Encounter: 06/05/18 Time of Encounter: 15:58 RAPID RESPONSE: 13:43 Called by nurse due to pt being lethargic and pulse dropping. Upon arrival pt was unresponsive and pulse was low 80's. Pt oxygen was increased but with little improvement. She was given Narcan 2 mg x 2 and bag mask valve was used to oxygenate her. Pt slowly became responsive and was alert and oriented times 3. She stated her name and that she was in the hospital. She stated to the nurse that [birth year] Rj Quinn's [birth year]. Pt was placed on BiPAP. RAPID RESPONSE: 14:26 Pt became slowly unresponsive again while on BiPAP. Hence, SUBWAY TRAIN OPERATOR was called again. Pt was not able to maintain her saturation and soon it became undetectable, so decision was made to intubate her. Pt was successfully intubated. Pt's pulse became thready and eventually could not be palpated. She compressions where initiated immediately and pt had received 2 rounds of EPi. She was also given fluid boluses. STAT Labs ordered Pt regained a pulse and she was immediately transferred to ICU and started on a pressor. CODE BLUE: 14:40 Pt went pulseless again in the ICU-10. Chest compression where resumed and she recived few more doses of EPi. She also received Bicarb x 2. Labs repeated and reviewed. She developed hypotension so pressor was increased. Resuscitation efforts where restarted. Family was updated on pt current medical status. requested CODE STATUS remain FULL. CODE BLUE:16:18 Pt' became hypotensive and pressor was increased again. Family notified that pt has been pulsless now for about 20 minutes and unlikely to recover. and daughter requesting we stop all aggressive measures at this time. Pressor discontinued and ventilation support discontinued per family request. Time of called at 17:07.
[2018-06-05 17:03] LABS: Magnesium 2.1 mg/dL (1.6-2.6)
--- NOTE | 2018-06-05 17:17 | Death Note ---
<Adrian Harrell - Last Filed: 06/05/18 17:13> Discharge Sum: Summary - Date and Time Date of admission: 06/04/18 15:21 Date of : 06/05/18 Time of : 17:07 - Summary Details: In brief, Ms. Garibay is a 72-year-old female with past medical history of arthritis, hypertension, hyperlipidemia, diabetes, CAD, diastolic CHF, atrial fibrillation, CKD stage III, pulmonary hypertension. She presented to the emergency department via EMS after a fall with subsequent fracture of her left hip. She did undergo revision on 06/05/18 and per operative note, tolerated the procedure well. At approximately 1426, rapid response was called overhead due to patient becoming unresponsive and concerns of hypotension and hypoxia. Patient did initially respond to naloxone with improvement of her oxygenation and blood pressure. Soon after at approximately 1444, rapid response was again called due to decreased awareness and again hypoxia. Patient was subsequently intubated. Soon after intubation, patient did lose a pulse and CAITLIN BLUE was called and CPR was initiated. We did achieve return of spontaneous circulation after epinephrine and CPR. She was subsequently transferred to the intensive care unit for further monitoring. Upon arrival to the ICU, central venous access was obtained via right femoral vein. Please see event notes and procedure notes of same date. Patient was stabilized however shortly after presentation she began to become bradycardic and hypotensive and subsequently did lose a pulse. CPR was initiated. 7 total rounds of CPR were performed with appropriate epinephrine, magnesium, calcium, bicarbonate administered during the code. Again, ROSC was achieved. Laboratory results obtained at the first code did return and were significant for metabolic acidosis, hyperkalemia 5.3, lactic acidosis. Troponin was negative and EKG did not show signs of ischemia at that time. Throughout this series of events, patient's family was present in counseling room. Discussions were had multiple times regarding goals of care. Patient's who is next of kin initially stated that he would like everything done and thus the second round of CPR was continued until ROSC. Patient again started to come bradycardia and long discussion was had with the family. At this time, it was explained that patient's prognosis was poor but we still do have the option of continuing CPR medications to attempt to maintain her heart function. At that time, the did decide to withdraw care and CODE STATUS was changed to DNR comfort care. Vasopressors and additional drips were turned off at that time. Patient continued to become bradycardia and did lose her pulse for a third time. Physician was in the room and upon auscultation there were no heart sounds or breath sounds on the ventilator. Pupils were fixed and dilated and no pulse was appreciated in the carotid or radial arteries. Time of was pronounced at 1707 and family was present during the pronouncement. - Additional Data Confirmation of as documented by pronouncing clinician: no pulse, no respirations, no heart sounds, pupils fixed and dilated Family: at bedside Additional persons at bedside: yarely Attending/PCP notified?: Yes Attending physician: Mahesh Ruiz Was code activated?: No clothing examiner notified?: Yes Organ bank notified?: Yes Hospice patient?: No Discharge Sum: Diag - PCOD Probable Cause of : Cardiac arrest Discharge Sum: Prov - Provider Primary care physician: Gabe Montano Jr, MD Consults: 06/05/18 13:38 Consult to Occupational Therapy [CONS] Routine Comment: Evaluate, develop and implement POC Reason for Consult: post hip surgery Does patient have active BEDREST order?: No Is patient medically & hemodynamically stable?: Yes Consult to Orthopedic Navigator [CONS] [CONS] Routine Consult to Physical Therapy [CONS] Routine Comment: Evaluate, develop and implement POC Reason for Consult: post hip surgery Does patient have active BEDREST order?: No Is patient medically & hemodynamically stable?: Yes Consult to Spiral Tube Winder [CONS] Routine Reason for SW Consult: post -op hip fracture RT Post Op Consult [CONS] Routine 06/05/18 15:43 Consult to Critical Care [CONS] Routine Consulting Provider: Pulm Crit Care & Sleep [facility] Reason for Consult: acute respiratory failure and critical care management Call Completed: Yes Pronouncing clinician: Adrian Harrell <Cassandra Sarkar - Last Filed: 06/05/18 18:53> Discharge Sum: Summary - Date and Time Date of admission: 06/04/18 15:21 - Summary Details: Attestation I saw and evaluated the patient. I reviewed the residents note and agree above. Physical exam: Pt's pupils where fixed and dilated There where no heart of lung sounds. Pt was not responsive to verbal or painful stimuli. TOD called at 17:07 Also see note completed by Dr. Sarkar regarding above. - Additional Data Attending physician: Mahesh Ruiz Discharge Sum: Prov - Provider Primary care physician: Gabe Montano Jr, MD Admitting clinician: Cassandra Sarkar Attending physician on admission: Cassandra Sarkar Consults: 06/05/18 13:38 Consult to Occupational Therapy [CONS] Routine Comment: Evaluate, develop and implement POC Reason for Consult: post hip surgery Does patient have active BEDREST order?: No Is patient medically & hemodynamically stable?: Yes Consult to Orthopedic Navigator [CONS] [CONS] Routine Consult to Physical Therapy [CONS] Routine Comment: Evaluate, develop and implement POC Reason for Consult: post hip surgery Does patient have active BEDREST order?: No Is patient medically & hemodynamically stable?: Yes Consult to Spiral Tube Winder [CONS] Routine Reason for SW Consult: post -op hip fracture RT Post Op Consult [CONS] Routine 06/05/18 15:43 Consult to Critical Care [CONS] Routine Consulting Provider: Pulm Crit Care & Sleep [place] Reason for Consult: acute respiratory failure and critical care management Call Completed: Yes
[2018-06-05] MEDS ORDERED: *HR* Atropine Sulfate 1 MG/10 ML SYRINGE IV ONE (20:14)
[2018-06-05] MEDS ORDERED: *HR* EPINEPHrine 1 MG/10 ML SYRINGE IVP ONE ×2 (20:14)
[2018-06-05] MEDS ORDERED: *HR* Etomidate 20 MG/10 ML AMPUL IVP ONE (20:14)
[2018-06-05] MEDS ORDERED: *HR* Midazolam HCl 2 MG/2 ML VIAL IV ONE (20:14)
[2018-06-05] MEDS ORDERED: Insulin DETEMIR 100 UNIT/ML X5UNITS SQ SCH (21:00)
[2018-06-05] MEDS ORDERED: Metoprolol 100 MG TABLET PO SCH (21:00)
[2018-06-06] MEDS ORDERED: Piperacillin/Tazobactam 3.375 GM in 0.9 % Sodium Chloride Mini Bag 100 ML IVPB SCH
[2018-06-06] MEDS ORDERED: cefTRIAXone 1,000 MG in Water for inj. (sterile) 20 ML 10 ML IVP SCH (09:00)
[2018-06-06] MEDS ORDERED: Aspirin 81 MG TAB.CHEW PO SCH (09:00)
--- NOTE | 2018-06-06 17:39 | Electrocardiograph Report ---
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
--- NOTE | 2018-06-06 19:55 | Electrocardiograph Report ---
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
--- NOTE | 2018-06-06 20:05 | Electrocardiograph Report ---
[address] [place], [place] [address] Test Date: 2018-06-04 Pat Name: Smita Garibay Department: [id number] Room: 10 Gender: Owner Manager: : 1945 Requested By: Piter Montiel Order Number: [id number] Reading MD: Verito Pacheco Measurements Intervals [place] Rate: 88 P: [place]: QRS: 57 QRSD: 104 T: 72 QT: 375 QTc: 454 Interpretive Statements Atrial fibrillation Nonspecific ST and T abnormalities Electronically Signed On 06-06-2018 20:04:12 EST by Verito Pacheco
== END 2018-06-05 20:15 | disposition expired | DRG 480 ==
LOC: EMEROOARM 10:23 → 3NENU 15:21 → ICNU 06-05 15:10
PROVIDERS: ADMIT Internal Medicine; ATTEND Internal Medicine